=== PATIENT | male | born 1940 | race Caucasian/White ===

== ENCOUNTER → 2017-04-14 | Outpatient (CLI) | payer BC ==
[~2017-04-14] MED LIST: ASPCH81X PO; ATOR-22 PO; DTR5 PO; INDA1TAB3 PO; KFL500 PO; LUTE15CA PO; METO25TA3 PO; OMEG10007 PO; OXYC1CAP5 PO; TAMS0.4C38 PO
[2017-04-14 09:34] LABS: BASO % 0.5 %; BASO ABS # 0.03 K/uL (0-0.2); COMPLETE YES; EOS % 2.4 %; HEMATOCRIT 44.9 % (42-52); IG% 0.3 %; LYMPH % 34.2 %; LYMPH ABS # 2.14 K/uL (1.2-3.4); MEAN CELL VOLUME 93.3 fL (80-100); MEAN CORPUSCULAR HEMOGLOBIN 30.4 pg (25-34); MEAN CORPUSCULAR HGB CONC 32.5 g/dl (32-36); MEAN PLATELET VOLUME 9.7 fL (7.4-10.4); MONO % 9.8 %; NEUT % 52.8 %; PLATELET COUNT 238 K/uL (130-400); RED BLOOD COUNT 4.81 M/uL (4.7-6.1); WHITE BLOOD COUNT 6.25 K/uL (4.8-10.8)
[2017-04-14 09:47] LABS: ESTIMATED AVERAGE GLUCOSE 114 mg/dl; HA1C FLAG Normal (Normal)
[2017-04-14 09:53] LABS: URINE APPEARANCE CLEAR (CLEAR); URINE BILIRUBIN NEG (NEG); URINE COLOR DK YELLOW; URINE NITRITE NEG (NEG); URINE PH 6.5 (4.5-7.5); URINE SPECIFIC GRAVITY 1.026 (1.000-1.030); UROBILINOGEN NEG (NEG)
[2017-04-14 09:54] LABS: ALT/SGPT 25 U/L (12-78); AST/SGOT 15 U/L (15-37); BLOOD UREA NITROGEN 18 mg/dl (7-18); BUN/CREATININE RATIO 17.7 (10-20); CALCIUM 8.7 mg/dl (8.5-10.1); CARBON DIOXIDE 31 mmol/L (21-32); CHLORIDE 107 mmol/L (98-107); GLUCOSE 95 mg/dl (70-99); SODIUM 142 mmol/L (136-145)
[2017-04-14 10:00] LABS: MANUAL MICROSCOPIC REQUIRED? NO; REVIEW REQ? NO
[2017-04-14 10:04] LABS: CHOLESTEROL 114 mg/dl (0-200); CHOLESTEROL/HDL RATIO 1.9; HDL CHOLESTEROL 59 mg/dl; LDL CHOLESTEROL CALCULATED 42 mg/dl; TRIGLYCERIDES 67 mg/dl (0-150); URIC ACID 5.4 mg/dl (2.6-7.2); VERY LOW DENSITY LIPOPROT CALC 13 mg/dl
--- NOTE | 2017-04-21 08:27 | CODING QUERY MEDICAL NECESSITY ---
SUPPORTING DIAGNOSIS NEEDED Dr. Bello, A supporting diagnosis is required for the test/procedure performed on this patient in order for us to be reimbursed by the patient's insurance. Please provide a supporting diagnosis for the following test/procedure listed below next to the test name along with your signature. *If there is no additional diagnosis for this patient that would support the following test/procedure please document that below next to the test/procedure. Test(s)/Procedure(s) that require a supporting diagnosis: * 13336 GLYCATED HEMOGLOBIN DIAGNOSIS: DATE OF SERVICE: 04/14/17 Provider Signature: Date: Thank you Kvng Narvaez [facility] Information Management Once completed, please kindly fax back to [phone] For questions please call [phone]
== END | disposition home or self-care (01) ==
LOC: C.LAB1850 06:47
PROVIDERS: ATTEND Internal Medicine
DX: Z00.00 Encounter for general adult medical examination without abnormal findings (principal); C61 Malignant neoplasm of prostate; E78.00 Pure hypercholesterolemia, unspecified

== ENCOUNTER 2017-07-30 18:05 | Observation (INO) | payer BC ==
[~2017-07-30] VITALS: Ht 182.9 cm; Wt 84.3 kg
[~2017-07-30 18:05] MED LIST changes: +HEPARIN SOD 5000 UNIT/0.5 ML CARP SQ SCH
[2017-07-30] MEDS ORDERED: ONDANSETRON INJ 2 MG/ML 2 ML VIAL IV STA (18:34)
[2017-07-30 18:43] LABS: HEMATOCRIT 44.9 % (42-52); MEAN CELL VOLUME 93.9 fL (80-100); MEAN CORPUSCULAR HEMOGLOBIN 32.4 pg (25-34); MEAN CORPUSCULAR HGB CONC 34.5 g/dl (32-36); MEAN PLATELET VOLUME 9.6 fL (7.4-10.4); PLATELET COUNT 274 K/uL (130-400); RED BLOOD COUNT 4.78 M/uL (4.7-6.1)
[2017-07-30] MEDS ORDERED: CSD50 PO (18:58)
[2017-07-30] MEDS ORDERED: [UNRECOGNIZED DRUG - CODE] TOP (18:58)
[2017-07-30] MEDS ORDERED: DOCU-94 PO (18:58)
[2017-07-30 19:03] LABS: BASO % 0.1 %; BASO ABS # 0.02 K/uL (0-0.2); COMPLETE YES; EOS % 0.4 %; IG% 0.4 %; LYMPH % 12.7 %; LYMPH ABS # 1.86 K/uL (1.2-3.4); MONO % 4.9 %; NEUT % 81.5 %
[2017-07-30 19:04] LABS: ALT/SGPT 23 U/L (12-78); AST/SGOT 15 U/L (15-37); BLOOD UREA NITROGEN 22 mg/dl (7-18); BUN/CREATININE RATIO 21.9 (10-20); CALCIUM 8.9 mg/dl (8.5-10.1); CARBON DIOXIDE 26 mmol/L (21-32); CHLORIDE 104 mmol/L (98-107); CREATININE 0.99 mg/dl (0.60-1.40); GLUCOSE 122 mg/dl (70-99); MAGNESIUM 2.3 mg/dl (1.8-2.4); POTASSIUM 3.7 mmol/L (3.5-5.1); SODIUM 137 mmol/L (136-145)
[2017-07-30 19:12] LABS: ALKALINE PHOSPHATASE 69 U/L (45-117); CKMB/CK RATIO 1.8 (0-3.0)
--- NOTE | 2017-07-30 19:15 | DIAGNOSTIC IMAGING REPORT ---
CHEST ONE VIEW PORTABLE CLINICAL HISTORY: 76 years-old Male presenting with EVALUATE WEAKNESS. TECHNIQUE: Portable upright AP view of the chest was obtained. COMPARISON: 12/04/2015. FINDINGS: Median sternotomy and mediastinal surgical clips noted. Cardiac silhouette normal in size. Minimal opacities at the left lung base. Lungs and pleural spaces otherwise clear. Degenerative changes of the thoracic spine. Upper abdomen normal. IMPRESSION: 1. Minimal left basilar atelectasis otherwise no acute cardiopulmonary disease. Electronically signed by: Jose A Leggett M.D. 07/30/2017 7:14 PM Dictated Date/Time: 07/30/2017 7:11 PM
[2017-07-30 19:31] LABS: LYME DISEASE AB IGG NEG (NEG); LYME DISEASE AB IGM NEG (NEG)
--- NOTE | 2017-07-30 19:49 | DIAGNOSTIC IMAGING REPORT ---
ABD/PELVIS NO IV OR ORAL CONT CLINICAL HISTORY: 76 years-old Male presenting with upper abd pain, vomiting. prior prostatectomy. TECHNIQUE: Multidetector CT of the abdomen and pelvis was performed without the use of intravenous contrast. IV contrast: None. A dose lowering technique was used consistent with the principles of ALARA (as low as reasonably achievable). COMPARISON: 12/26/2012. CT DOSE (mGy.cm): The estimated cumulative dose is 354.53 mGy.cm. FINDINGS: Completions Engineer topogram: Median sternotomy wires noted. Lung bases: Bilateral gynecomastia. Minimal dependent changes likely atelectasis. Peripheral/subpleural solid 4 mm nodule in the right lower lobe (series 3 image 61), not included within the [id number] on prior CT. Peripheral/subpleural solid 4 mm nodule in the left lower lobe (series 3 image 73), unchanged since 2013. Coronary artery calcification. Postsurgical changes of coronary artery bypass. Aortic valve calcification. Top normal heart size. No pericardial or pleural effusion. Liver: Normal morphology. Normal density. Biliary: No gross biliary ductal dilatation allowing for noncontrast technique. Gallbladder contains gallstones. Pancreas: Normal noncontrast appearance. Spleen: Normal noncontrast appearance. Adrenal glands: Normal noncontrast appearance. Kidneys and ureters: Well-defined hypodensity at the lower pole of the left kidney likely cyst. Additional hypodensities in the left kidney also likely cysts. No nephrolithiasis. No hydronephrosis. Bladder: Incompletely evaluated secondary to underdistention. Pelvic organs: Postsurgical changes of prostatectomy. Bowel: Diverticulosis of the sigmoid colon. Mild stool burden throughout normal caliber colon. Few diverticula also noted in the ascending colon with minimal surrounding pericolonic fat stranding in the right paracolic region. This may be somewhat chronic given the appearance on prior exam and the absence of a specific association with diverticula. No bowel obstruction. Feces in the small bowel suggest delayed transit. Peritoneal cavity: No free fluid or intraperitoneal gas. Lymph nodes: No gross lymphadenopathy allowing for noncontrast technique. Vasculature: Atherosclerosis of the normal caliber abdominal aorta. Mild ectasia of the left superficial femoral vein along its proximal course. Abdominal wall: Small fat-containing of umbilical hernia. Musculoskeletal: Degenerative changes of the spine. IMPRESSION: 1. Mild pericolonic fat stranding in the right paracolic region. This is nonspecific. Mild acute diverticulitis is difficult to exclude, although fat infiltration does not appear to be centered at the few diverticula in the ascending colon. This may alternatively represent chronic stranding or fluid in the right anterior peritoneal space, which was present on the prior exam but to a greater degree. 2. Diverticulosis of the sigmoid colon. 3. Mild stool burden. 4. Cholelithiasis. No gross biliary ductal dilatation. 5. Solid 4 mm right lower lobe nodule. Follow-up per Romel Society 2017 recommendations below. Please refer to below summary of Fleischner Society 2017 recommendations for follow-up of incidental CT nodules (H Anusha et al. Guidelines for management of incidental pulmonary nodules detected on CT images: From the Fleischner Society 2017. Radiology 2017; 284: 228-243.) SOLID NODULES Single nodule; size < 6 mm * Low risk patients: No routine follow-up * High risk patients: Optional CT at 12 months Single nodule; size 6-8 mm * Low risk patients: CT at 6-12 months, then consider CT at 18-24 months * High risk patients: CT at 6-12 months, then at 18-24 months Single nodule; size > 8 mm * Either low or high risk patients: Considered CT at 3 months, PET/CT, or tissue sampling Multiple nodules; size < 6 mm * Low risk patients: No routine follow up * High risk patients: Optional CT at 12 months Multiple nodules; size 6-8 mm * Low risk patients: CT at 3-6 months, then consider CT at 18-24 months * High risk patients: CT at 3-6 months, then at 18-24 months Multiple nodules; size > 8 mm * Low risk patients: CT at 3-6 months, then consider at 18-24 months * High risk patients: CT at 3-6 months, then at 18-24 months Note: These guidelines apply to incidental nodules. These guidelines do not apply to patients younger than 35 years, immunocompromised patients, or patients with cancer. * Low risk patients: Minimal or absent history of smoking and/or other known risk factors * High risk patients: History of smoking, exposure to other carcinogens, emphysema, fibrosis, upper lobe location, family history of lung cancer, etc. * If a nodule up to 8 mm is partly solid or is ground glass, further follow-up is required after 24 months to exclude possible slow growing adenocarcinoma. SUBSOLID NODULES Single ground-glass nodule * Nodule size < 6 mm: No routine follow-up * Nodule size > or = 6 mm: CT at 6-12 months to confirm persistence, then CT every 2 years until 5 years Single part-solid nodule * Nodule size < 6 mm: No routine follow-up * Nodules size > or = 6 mm: CT at 3-6 months to confirm persistence. If unchanged and solid component remains < 6 mm, annual CT should be performed for 5 years Multiple nodules * Nodule size < 6 mm: CT at 3-6 months. If stable, consider CT at 2 and 4 years. * Nodules size > or = 6 mm: CT at 3-6 months. Subsequent management based on the most suspicious nodule(s) Electronically signed by: Jose A Leggett M.D. 07/30/2017 7:48 PM Dictated Date/Time: 07/30/2017 7:37 PM
[2017-07-30 20:00] LABS: URINE APPEARANCE CLEAR (CLEAR); URINE BILIRUBIN NEG (NEG); URINE COLOR YELLOW; URINE EPITHELIAL CELL AUTO 0-5 /lpf (0-5); URINE NITRITE NEG (NEG); URINE SPECIFIC GRAVITY 1.024 (1.000-1.030); UROBILINOGEN NEG (NEG)
[2017-07-30 20:01] LABS: MANUAL MICROSCOPIC REQUIRED? NO; REVIEW REQ? NO
[2017-07-30] MEDS ORDERED: PIPERACILLIN/TAZOBACTAM 4.5 GM/100ML D5W IV STA (20:04)
[2017-07-30] MEDS ORDERED: TRAMADOL HCL 50 MG TAB PO PRN (20:45)
[2017-07-30] MEDS ORDERED: ALUMINUM/MAGNESIUM/SIMETH (MAALOX MAX) 30 ML UDC PO PRN (20:45)
[2017-07-30] MEDS ORDERED: ONDANSETRON INJ 2 MG/ML 2 ML VIAL IV PRN (20:45)
[2017-07-30] MEDS ORDERED: ACETAMINOPHEN 325 MG TAB PO PRN (20:45)
[2017-07-30] MEDS ORDERED: POLYETHYLENE (MIRALAX) 17 GM PACK PO PRN (20:45)
[2017-07-30] MEDS ORDERED: MAGNESIUM HYDROXIDE SUSP 30 ML UDC PO PRN (20:45)
[2017-07-30] MEDS ORDERED: ATORVASTATIN 20 MG TAB PO SCH (21:00)
[2017-07-30] MEDS: METOPROLOL SUCC 25MG EXT REL TAB PO SCH (21:00)
[2017-07-30] MEDS ORDERED: OMEGA-3 (PURIFIED FISH OIL) 1 GM CAP PO SCH (21:00)
--- NOTE | 2017-07-30 21:10 | History and Physical ---
History & Physical Date & Time of Service: Jul 30, 2017 at 20:43 Chief Complaint: Vomiting, Flu,Dizzy,Possible Heart Primary Care Physician: Mark Bello M.D. History of Present Illness Source: patient 76 y/o M Hx prostate CA, HTN, HPL, CAD. Pt was driving and became acutely nauseous and lightheaded and clammy. He pulled over and rolled down his window as he felt like he needed some air. He had a few episodes of vomiting and some lower abdominal pain. He continued to feel weak and generally ill and presented to the hospital for evaluation. An abdominal CT was obtained due to persistent pain and vomiting. This was nondefinitive, however, mild acute R diverticulitis could not be ruled out. The pt has not had any CP and does not c /o SOB at the time of admission. He denies fevers or dysuria. Past Medical/Surgical History Medical Problems: (1) Elevated troponin Status: Resolved (2) Non-ST elevated myocardial infarction Status: Resolved (3) Small bowel obstruction Status: Resolved (4) Small bowel obstruction Status: Resolved Surgical Problems: (1) History of hernia surgery Status: Resolved Family History No significant family history Noncontributory Social History Smoking Status: Never Smoker Marital Status: Occupational Status: retired Immunizations History of Influenza Vaccine: Yes History of Tetanus Vaccine?: Yes History of Pneumococcal: No History of Hepatitis B Vaccine: No Multi-Drug Resistant Organisms History of MDRO: No Allergies Coded Allergies: No Known Allergies (Unverified , 12/03/15) Home Medications Scheduled Aspirin (Aspirin Chewable), 81 MG PO QAM Atorvastatin (Lipitor), 20 MG PO QPM Bicalutamide (Bicalutamide), 50 MG PO QPM Docusate Sodium (Colace), 1 CAP PO BID Fish Oil (Drake-3), 1 CAP PO QPM Fluorouracil (Fluorouracil), 1 APPLN TOP UD Indapamide (Lozol), 1.25 MG PO QAM Lutein-Zeaxanthin (Lutein), 1 CAPSULE PO BID Metoprolol Succ (Toprol Xl) (Toprol-Xl), 12.5 MG PO BID Review of Systems Constitutional: + problem reported (Clammy), No fever, No chills, No sweats Eyes: No worsening of vision ENT: No hearing loss, No nasal symptoms Respiratory: + shortness of breath, No cough, No sputum, No wheezing Cardiovascular: No chest pain Abdomen: + pain (diffuse, moderate), + nausea, + vomiting Musculoskeletal: No joint pain Genitourinary - Male: No hematuria, No dysuria, No urinary frequency, No urinary urgency Neurologic: + weakness, No memory loss Psychiatric: No depression symptoms Endocrine: + fatigue Hematologic / Lymphatic: No abnormal bleeding/bruising Integumentary: No rash Allergic / Immunologic: No environmental allergies Physical Exam Vital Signs Date Time Temp Pulse Resp B/P (MAP) Pulse Ox O2 Delivery O2 Flow Rate FiO2 07/30/17 20:01 133/71 07/30/17 19:51 68 18 95 07/30/17 19:36 58 17 140/79 96 07/30/17 19:34 149/80 07/30/17 19:32 63 140/76 71 149/80 75 140/79 07/30/17 19:32 140/76 07/30/17 19:06 64 12 91 07/30/17 19:03 62 07/30/17 19:01 63 13 149/76 93 Room Air 07/30/17 18:53 146/79 07/30/17 18:37 97 Room Air 07/30/17 18:08 36.4 45 19 157/84 97 Room Air General Appearance: WD/WN, no apparent distress Head: normocephalic Eyes: normal inspection ENT: normal ENT inspection, pharynx normal Neck: supple, no JVD Respiratory/Chest: chest non-tender, lungs clear, normal breath sounds Cardiovascular: regular rate, rhythm, no edema, no gallop Abdomen/GI: normal bowel sounds, non tender, soft Back: normal inspection, no CVA tenderness, no muscle spasm, normal range of motion Extremities/Musculoskelatal: normal inspection Neurologic/Psych: drug room operator II-XII nml as tested, no motor/sensory deficits, alert, normal mood/affect, normal reflexes, oriented x 3 Skin: normal color, warm/dry, no rash Diagnostics Laboratory Results Results Past 24 Hours Test 07/30/17 18:20 07/30/17 19:45 Range/Units White Blood Count 14.70 4.8-10.8 K/uL Red Blood Count 4.78 4.7-6.1 M/uL Hemoglobin 15.5 14.0-18.0 g/dL Hematocrit 44.9 42-52 % Mean Corpuscular Volume 93.9 80-100 fL Mean Corpuscular Hemoglobin 32.4 25-34 pg Mean Corpuscular Hemoglobin Concent 34.5 32-36 g/dl Platelet Count 274 130-400 K/uL Mean Platelet Volume 9.6 7.4-10.4 fL Neutrophils (%) (Auto) 81.5 % Lymphocytes (%) (Auto) 12.7 % Monocytes (%) (Auto) 4.9 % Eosinophils (%) (Auto) 0.4 % Basophils (%) (Auto) 0.1 % Neutrophils # (Auto) 11.98 1.4-6.5 K/uL Lymphocytes # (Auto) 1.86 1.2-3.4 K/uL Monocytes # (Auto) 0.72 0.11-0.59 K/uL Eosinophils # (Auto) 0.06 0-0.5 K/uL Basophils # (Auto) 0.02 0-0.2 K/uL RDW Standard Deviation 44.4 36.4-46.3 fL RDW Coefficient of Variation 12.9 11.5-14.5 % Immature Granulocyte % (Auto) 0.4 % Immature Granulocyte # (Auto) 0.06 0.00-0.02 K/uL Red Blood Cell Morphology Unremarkable Sodium Level 137 136-145 mmol/L Potassium Level 3.7 3.5-5.1 mmol/L Chloride Level 104 98-107 mmol/L Carbon Dioxide Level 26 21-32 mmol/L Anion Gap 7.0 3-11 mmol/L Blood Urea Nitrogen 22 7-18 mg/dl Creatinine 0.99 0.60-1.40 mg/dl Est Creatinine Clear Calc Drug Dose 69.7 ml/min Estimated GFR () 85.4 Estimated GFR (Non- 73.7 BUN/Creatinine Ratio 21.9 10-20 Random Glucose 122 70-99 mg/dl Calcium Level 8.9 8.5-10.1 mg/dl Magnesium Level 2.3 1.8-2.4 mg/dl Total Bilirubin 0.4 0.2-1 mg/dl Direct Bilirubin 0.1 0-0.2 mg/dl Aspartate Amino Transf (AST/SGOT) 15 15-37 U/L Alanine Aminotransferase (ALT/SGPT) 23 12-78 U/L Alkaline Phosphatase 69 45-117 U/L Total Creatine Kinase 141 39-308 U/L Creatine Kinase MB 2.6 0.5-3.6 ng/ml Creatine Kinase MB Ratio 1.8 0-3.0 Troponin I < 0.015 0-0.045 ng/ml Pro-B-Type Natriuretic Peptide 559 0-1800 pg/ml Total Protein 7.7 6.4-8.2 gm/dl Albumin 4.1 3.4-5.0 gm/dl Lipase 87 73-393 U/L Thyroid Stimulating Hormone (TSH) 7.890 0.300-4.500 uIu/ml Lyme Disease IgG Antibody NEG NEG Lyme Disease IgM Antibody NEG NEG Urine Color YELLOW Urine Appearance CLEAR CLEAR Urine pH 5.0 4.5-7.5 Urine Specific [place] 1.024 1.000-1.030 Urine Protein NEG NEG Urine Glucose (UA) NEG NEG Urine Ketones 1+ NEG Urine Occult Blood NEG NEG Urine Nitrite NEG NEG Urine Bilirubin NEG NEG Urine Urobilinogen NEG NEG Urine Leukocyte Esterase TRACE NEG Urine WBC (Auto) 0 0-5 /hpf Urine RBC (Auto) 0-4 0-4 /hpf Urine Hyaline Casts (Auto) 1-5 0-5 /lpf Urine Epithelial Cells (Auto) 0-5 0-5 /lpf Urine Bacteria (Auto) NEG NEG Microbiology Results 07/30/17 Urine Culture, Received Pending Diagnostic Radiology CT abdomen 1. Mild pericolonic fat stranding in the right paracolic region. This is nonspecific. Mild acute diverticulitis is difficult to exclude, although fat infiltration does not appear to be centered at the few diverticula in the ascending colon. This may alternatively represent chronic stranding or fluid in the right anterior peritoneal space, which was present on the prior exam but to a greater degree. 2. Diverticulosis of the sigmoid colon. 3. Mild stool burden. 4. Cholelithiasis. No gross biliary ductal dilatation. EKG NSR, RBBB - compared to prev - R vent conduction delay is now a RBBB Impression Assessment and Plan 76 y/o M Hx prostate CA, HTN, HPL, CAD. Pt was driving and became acutely nauseous and lightheaded and clammy. He pulled over and rolled down his window as he felt like he needed some air. He had a few episodes of vomiting and some lower abdominal pain. He continued to feel weak and generally ill and presented to the hospital for evaluation. An abdominal CT was obtained due to persistent pain and vomiting. This was nondefinitive, however, mild acute R diverticulitis could not be ruled out. The pt has not had any CP and does not c /o SOB at the time of admission. He denies fevers or dysuria. 1) Acute N/V abdominal pain - possibly related to acute diverticulitis. He is not tolerating PO so was placed on Zosyn in the ER. We would convert this to PO Augmentin or a Cipro/Flagyl combo at the earliest time considering the equivocal CT report. IVF, clear diet, antiemetics, PRN Tramadol provided. 2) CAD - he had initially felt like he needed air and became clammy - this is probably a GI issue, and an initial EKG and trop do not suggest ACS, however there is a RBBB on his EKG which was previously R conduction delay. this is of unclear significance. We will obtain an additional trop - he will remain on ASA , Statin, B reed. 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 3) HTN, HPL - cont Metoprolol, Lipitor 4) Prostate CA - remains on hormonal Tx 5) TSH is elevated - T3,4 ordered Full code - Heparin prophylaxis Total time for this admit including review of labs, meds, imaging - discussion with pt and ER attending - 40 min Level of Care Med/Surg Resuscitation Status FULL RESUSCITATION VTE Prophylaxis VTE Risk Assessment Done? Y/N: Yes Risk Level: Moderate Given or contraindicated: Unfractionated heparin SQ
--- NOTE | 2017-07-30 21:13 | DIAGNOSTIC IMAGING REPORT ---
GALLBLADDER-ABD LIMITED CLINICAL HISTORY: 76 years-old Male presenting with vomiting, cholelithiasis. TECHNIQUE: Real-time grayscale and limited color Doppler ultrasound imaging of the abdomen limited to the right upper quadrant was performed. COMPARISON: 07/23/2015. FINDINGS: Pancreas: Largely obscured due to overlying bowel gas. Liver: Normal echogenicity and echotexture. The liver measures 14 cm in maximal sagittal dimension. No sonographic evidence of hepatic mass. Main portal vein patent with normal directional flow. Biliary: No intrahepatic biliary ductal dilatation. Common bile duct measures up to 3 mm in diameter. Gallbladder: Gallstones and sludge without evidence of gallbladder distention, wall thickening, or pericholecystic fluid or inflammatory change. 1.6 cm gallstone near the gallbladder neck. Sonographic Velasco's sign negative. Right kidney: Normal in appearance. No hydronephrosis. Ascites: None. IMPRESSION: Cholelithiasis without evidence of cholecystitis or biliary ductal dilatation. Electronically signed by: Jose A Leggett M.D. 07/30/2017 9:12 PM Dictated Date/Time: 07/30/2017 9:10 PM
[2017-07-30] MEDS ORDERED: IV FLUIDS COMPLETED PRN ×2 (21:15)
[2017-07-30 22:16] VITALS: BP 157/76; PULSE 57; TEMP 36.7; O2SAT 93; Ht 182.9 cm; Wt 84.3 kg
[2017-07-30] MEDS: BICALUTAMIDE 50 MG TAB PO SCH (23:22)
[2017-07-31] MEDS: NSS + 20MEQ KCL 1000ML 1,000 ML IV SCH ×2 (00:01→10:24)
[2017-07-31] MEDS: BICALUTAMIDE 50 MG TAB PO SCH (00:03)
--- NOTE | 2017-07-31 03:37 | EMERGENCY ROOM VISIT NOTE ---
History Report prepared by Roslyn: Anita Guadalupe Under the Supervision of: Dr. Will Celis M.D. First contact with patient: 18:21 Chief Complaint: VOMITING Stated Complaint: VOMITING, FLU,DIZZY,POSSIBLE HEART History of Present Illness The patient is a 76 year old male who presents to the Emergency Room with complaints of an episode of vomiting starting two hours ago. The patient states that he was driving his home from physical therapy when he broke out in cold sweats. He states that all of a sudden he became nauseous and opened the car window for some air. He notes that shortly after he started vomiting. He states that it was all clear and there wasn't much there. He states that when he got home he laid down. He reports that he felt like his pulse had dropped, but when he took his pulse it was 57. He states that he took his blood pressure it was 147/82 which is high for him. The patient complains of dizziness, body aches, dry mouth, a little abdominal pain, and numbness in his hands and feet. The patient currently rates his pain as a 3/10 in severity. The patient denies being around anyone sick and eating anything unusual. The patient notes that he has bladder incontinence from a prostatectomy due to prostate cancer. He notes that he is on chemotherapy, but has been for two years. Pt denies LOC, headache, fevers, visual changes, neck pain, chest pain, breathing difficulties, back pain, melena, hematochezia, weakness, lymphadenopathy, rash, or other complaints. Source of History: patient Onset: two hours ago Position: other (global) Symptom Intensity: 3/10 Quality: other (global) Timing: other (episode) Associated Symptoms: + chills, + diaphoresis, + nausea, + abdominal pain, + numbness Note: The patient complains of dizziness, body aches, and a dry mouth. The patient denies being around anyone sick and eating anything unusual. Review of Systems See HPI for pertinent positives and negatives. A total of ten systems were reviewed and were otherwise negative. Past Medical & Surgical Medical Problems: (1) Diverticulitis large intestine (2) Elevated troponin (3) History of prostate cancer (4) Hx of Lyme disease (5) Non-ST elevated myocardial infarction (6) Small bowel obstruction (7) Small bowel obstruction Surgical Problems: (1) H/O prostatectomy (2) History of hernia surgery Family History No significant family history Social History Smoking Status: Never Smoker Marital Status: Housing Status: lives with family Occupation Status: retired Current/Historical Medications Scheduled Aspirin (Aspirin Chewable), 81 MG PO QAM Atorvastatin (Lipitor), 20 MG PO QPM Bicalutamide (Bicalutamide), 50 MG PO QPM Docusate Sodium (Colace), 1 CAP PO BID Fish Oil (Seminary-3), 1 CAP PO QPM Fluorouracil (Fluorouracil), 1 APPLN TOP UD Indapamide (Lozol), 1.25 MG PO QAM Lutein-Zeaxanthin (Lutein), 1 CAPSULE PO BID Metoprolol Succ (Toprol Xl) (Toprol-Xl), 12.5 MG PO BID Allergies Coded Allergies: No Known Allergies (Unverified , 12/03/15) Physical Exam Vital Signs Date Time Temp Pulse Resp B/P (MAP) Pulse Ox O2 Delivery O2 Flow Rate FiO2 07/30/17 20:21 66 13 90 07/30/17 20:06 61 13 95 07/30/17 20:01 133/71 07/30/17 19:51 68 18 95 07/30/17 19:36 58 17 140/79 96 07/30/17 19:34 149/80 07/30/17 19:32 63 140/76 71 149/80 75 140/79 07/30/17 19:32 140/76 07/30/17 19:06 64 12 91 07/30/17 19:03 62 07/30/17 19:01 63 13 149/76 93 Room Air 07/30/17 18:53 146/79 07/30/17 18:37 97 Room Air 07/30/17 18:08 36.4 45 19 157/84 97 Room Air Physical Exam GENERAL: Awake, alert, uncomfortable-appearing, in no distress HENT: Normocephalic, atraumatic. Oropharynx unremarkable. EYES: Normal conjunctiva. Sclera non-icteric. NECK: Supple. No nuchal rigidity. FROM. No JVD. RESPIRATORY: Clear to auscultation. CARDIAC: Borderline bradycardic rate, normal rhythm. Extremities warm and well perfused. Pulses equal. ABDOMEN: Soft, non-distended. Mild upper abdominal tenderness to palpation. No rebound or guarding. No masses. RECTAL: Deferred. MUSCULOSKELETAL: Chest examination reveals no tenderness. The back is symmetrical on inspection without obvious abnormality. There is no CVA tenderness to palpation. No joint edema. LOWER EXTREMITIES: Calves are equal size bilaterally and non-tender. Trace edema. No discoloration. NEURO: Normal sensorium. No sensory or motor deficits noted. SKIN: No rash or jaundice noted. Medical Decision & Procedures ER Provider Diagnostic Interpretation: Radiology results as stated below per my review and radiologist interpretation: CHEST ONE VIEW PORTABLE CLINICAL HISTORY: 76 years-old Male presenting with EVALUATE WEAKNESS. TECHNIQUE: Portable upright AP view of the chest was obtained. COMPARISON: 12/04/2015. FINDINGS: Median sternotomy and mediastinal surgical clips noted. Cardiac silhouette normal in size. Minimal opacities at the left lung base. Lungs and pleural spaces otherwise clear. Degenerative changes of the thoracic spine. Upper abdomen normal. IMPRESSION: 1. Minimal left basilar atelectasis otherwise no acute cardiopulmonary disease. Electronically signed by: Jose A Leggett M.D. 07/30/2017 7:14 PM Dictated Date/Time: 07/30/2017 7:11 PM ABD/PELVIS NO IV OR ORAL CONT CLINICAL HISTORY: 76 years-old Male presenting with upper abd pain, vomiting. prior prostatectomy. TECHNIQUE: Multidetector CT of the abdomen and pelvis was performed without the use of intravenous contrast. IV contrast: None. A dose lowering technique was used consistent with the principles of ALARA (as low as reasonably achievable). COMPARISON: 12/26/2012. CT DOSE (mGy.cm): The estimated cumulative dose is 354.53 mGy.cm. FINDINGS: [place] Hand topogram: Median sternotomy wires noted. Lung bases: Bilateral gynecomastia. Minimal dependent changes likely atelectasis. Peripheral/subpleural solid 4 mm nodule in the right lower lobe (series 3 image 61), not included within the [id number] on prior CT. Peripheral/subpleural solid 4 mm nodule in the left lower lobe (series 3 image 73), unchanged since 2013. Coronary artery calcification. Postsurgical changes of coronary artery bypass. Aortic valve calcification. Top normal heart size. No pericardial or pleural effusion. Liver: Normal morphology. Normal density. Biliary: No gross biliary ductal dilatation allowing for noncontrast technique. Gallbladder contains gallstones. Pancreas: Normal noncontrast appearance. Spleen: Normal noncontrast appearance. Adrenal glands: Normal noncontrast appearance. Kidneys and ureters: Well-defined hypodensity at the lower pole of the left kidney likely cyst. Additional hypodensities in the left kidney also likely cysts. No nephrolithiasis. No hydronephrosis. Bladder: Incompletely evaluated secondary to underdistention. Pelvic organs: Postsurgical changes of prostatectomy. Bowel: Diverticulosis of the sigmoid colon. Mild stool burden throughout normal caliber colon. Few diverticula also noted in the ascending colon with minimal surrounding pericolonic fat stranding in the right paracolic region. This may be somewhat chronic given the appearance on prior exam and the absence of a specific association with diverticula. No bowel obstruction. Feces in the small bowel suggest delayed transit. Peritoneal cavity: No free fluid or intraperitoneal gas. Lymph nodes: No gross lymphadenopathy allowing for noncontrast technique. Vasculature: Atherosclerosis of the normal caliber abdominal aorta. Mild ectasia of the left superficial femoral vein along its proximal course. Abdominal wall: Small fat-containing of umbilical hernia. Musculoskeletal: Degenerative changes of the spine. IMPRESSION: 1. Mild pericolonic fat stranding in the right paracolic region. This is nonspecific. Mild acute diverticulitis is difficult to exclude, although fat infiltration does not appear to be centered at the few diverticula in the ascending colon. This may alternatively represent chronic stranding or fluid in the right anterior peritoneal space, which was present on the prior exam but to a greater degree. 2. Diverticulosis of the sigmoid colon. 3. Mild stool burden. 4. Cholelithiasis. No gross biliary ductal dilatation. 5. Solid 4 mm right lower lobe nodule. Follow-up per Romel Society 2017 recommendations below. Please refer to below summary of Fleischner Society 2017 recommendations for follow-up of incidental CT nodules (H Anusha et al. Guidelines for management of incidental pulmonary nodules detected on CT images: From the Fleischner Society 2017. Radiology 2017; 284: 228-243.) SOLID NODULES Single nodule; size < 6 mm * Low risk patients: No routine follow-up * High risk patients: Optional CT at 12 months Single nodule; size 6-8 mm * Low risk patients: CT at 6-12 months, then consider CT at 18-24 months * High risk patients: CT at 6-12 months, then at 18-24 months Single nodule; size > 8 mm * Either low or high risk patients: Considered CT at 3 months, PET/CT, or tissue sampling Multiple nodules; size < 6 mm * Low risk patients: No routine follow up * High risk patients: Optional CT at 12 months Multiple nodules; size 6-8 mm * Low risk patients: CT at 3-6 months, then consider CT at 18-24 months * High risk patients: CT at 3-6 months, then at 18-24 months Multiple nodules; size > 8 mm * Low risk patients: CT at 3-6 months, then consider at 18-24 months * High risk patients: CT at 3-6 months, then at 18-24 months Note: These guidelines apply to incidental nodules. These guidelines do not apply to patients younger than 35 years, immunocompromised patients, or patients with cancer. * Low risk patients: Minimal or absent history of smoking and/or other known risk factors * High risk patients: History of smoking, exposure to other carcinogens, emphysema, fibrosis, upper lobe location, family history of lung cancer, etc. * If a nodule up to 8 mm is partly solid or is ground glass, further follow-up is required after 24 months to exclude possible slow growing adenocarcinoma. SUBSOLID NODULES Single ground-glass nodule * Nodule size < 6 mm: No routine follow-up * Nodule size > or = 6 mm: CT at 6-12 months to confirm persistence, then CT every 2 years until 5 years Single part-solid nodule * Nodule size < 6 mm: No routine follow-up * Nodules size > or = 6 mm: CT at 3-6 months to confirm persistence. If unchanged and solid component remains < 6 mm, annual CT should be performed for 5 years Multiple nodules * Nodule size < 6 mm: CT at 3-6 months. If stable, consider CT at 2 and 4 years. * Nodules size > or = 6 mm: CT at 3-6 months. Subsequent management based on the most suspicious nodule(s) Electronically signed by: Jose A Leggett M.D. 07/30/2017 7:48 PM Dictated Date/Time: 07/30/2017 7:37 PM GALLBLADDER-ABD LIMITED CLINICAL HISTORY: 76 years-old Male presenting with vomiting, cholelithiasis. TECHNIQUE: Real-time grayscale and limited color Doppler ultrasound imaging of the abdomen limited to the right upper quadrant was performed. COMPARISON: 07/23/2015. FINDINGS: Pancreas: Largely obscured due to overlying bowel gas. Liver: Normal echogenicity and echotexture. The liver measures 14 cm in maximal sagittal dimension. No sonographic evidence of hepatic mass. Main portal vein patent with normal directional flow. Biliary: No intrahepatic biliary ductal dilatation. Common bile duct measures up to 3 mm in diameter. Gallbladder: Gallstones and sludge without evidence of gallbladder distention, wall thickening, or pericholecystic fluid or inflammatory change. 1.6 cm gallstone near the gallbladder neck. Sonographic Velasco's sign negative. Right kidney: Normal in appearance. No hydronephrosis. Ascites: None. IMPRESSION: Cholelithiasis without evidence of cholecystitis or biliary ductal dilatation. Electronically signed by: Jose A Leggett M.D. 07/30/2017 9:12 PM Dictated Date/Time: 07/30/2017 9:10 PM Laboratory Results 07/30/17 18:20 Red Blood Count 4.78, Mean Corpuscular Volume 93.9, Mean Corpuscular Hemoglobin 32.4, Mean Corpuscular Hemoglobin Concent 34.5, Mean Platelet Volume 9.6, Neutrophils (%) (Auto) 81.5, Lymphocytes (%) (Auto) 12.7, Monocytes (%) (Auto) 4.9, Eosinophils (%) (Auto) 0.4, Basophils (%) (Auto) 0.1, Neutrophils # (Auto) 11.98, Lymphocytes # (Auto) 1.86, Monocytes # (Auto) 0.72, Eosinophils # (Auto) 0.06, Basophils # (Auto) 0.02 07/30/17 18:20 Test 07/30/17 18:20 07/30/17 19:45 White Blood Count 14.70 K/uL (4.8-10.8) Red Blood Count 4.78 M/uL (4.7-6.1) Hemoglobin 15.5 g/dL (14.0-18.0) Hematocrit 44.9 % (42-52) Mean Corpuscular Volume 93.9 fL (80-100) Mean Corpuscular Hemoglobin 32.4 pg (25-34) Mean Corpuscular Hemoglobin Concent 34.5 g/dl (32-36) Platelet Count 274 K/uL (130-400) Mean Platelet Volume 9.6 fL (7.4-10.4) Neutrophils (%) (Auto) 81.5 % Lymphocytes (%) (Auto) 12.7 % Monocytes (%) (Auto) 4.9 % Eosinophils (%) (Auto) 0.4 % Basophils (%) (Auto) 0.1 % Neutrophils # (Auto) 11.98 K/uL (1.4-6.5) Lymphocytes # (Auto) 1.86 K/uL (1.2-3.4) Monocytes # (Auto) 0.72 K/uL (0.11-0.59) Eosinophils # (Auto) 0.06 K/uL (0-0.5) Basophils # (Auto) 0.02 K/uL (0-0.2) RDW Standard Deviation 44.4 fL (36.4-46.3) RDW Coefficient of Variation 12.9 % (11.5-14.5) Immature Granulocyte % (Auto) 0.4 % Immature Granulocyte # (Auto) 0.06 K/uL (0.00-0.02) Red Blood Cell Morphology Unremarkable Anion Gap 7.0 mmol/L (3-11) Est Creatinine Clear Calc Drug Dose 69.7 ml/min Estimated GFR () 85.4 Estimated GFR (Non- 73.7 BUN/Creatinine Ratio 21.9 (10-20) Calcium Level 8.9 mg/dl (8.5-10.1) Magnesium Level 2.3 mg/dl (1.8-2.4) Total Bilirubin 0.4 mg/dl (0.2-1) Direct Bilirubin 0.1 mg/dl (0-0.2) Aspartate Amino Transf (AST/SGOT) 15 U/L (15-37) Alanine Aminotransferase (ALT/SGPT) 23 U/L (12-78) Alkaline Phosphatase 69 U/L (45-117) Total Creatine Kinase 141 U/L (39-308) Creatine Kinase MB 2.6 ng/ml (0.5-3.6) Creatine Kinase MB Ratio 1.8 (0-3.0) Pro-B-Type Natriuretic Peptide 559 pg/ml (0-1800) Total Protein 7.7 gm/dl (6.4-8.2) Albumin 4.1 gm/dl (3.4-5.0) Lipase 87 U/L (73-393) Thyroid Stimulating Hormone (TSH) 7.890 uIu/ml (0.300-4.500) Lyme Disease IgG Antibody NEG (NEG) Lyme Disease IgM Antibody NEG (NEG) Urine Color YELLOW Urine Appearance CLEAR (CLEAR) Urine pH 5.0 (4.5-7.5) Urine Specific [place] 1.024 (1.000-1.030) Urine Protein NEG (NEG) Urine Glucose (UA) NEG (NEG) Urine Ketones 1+ (NEG) Urine Occult Blood NEG (NEG) Urine Nitrite NEG (NEG) Urine Bilirubin NEG (NEG) Urine Urobilinogen NEG (NEG) Urine Leukocyte Esterase TRACE (NEG) Urine WBC (Auto) 0 /hpf (0-5) Urine RBC (Auto) 0-4 /hpf (0-4) Urine Hyaline Casts (Auto) 1-5 /lpf (0-5) Urine Epithelial Cells (Auto) 0-5 /lpf (0-5) Urine Bacteria (Auto) NEG (NEG) Laboratory results reviewed by me Medications Administered Medications (Trade) Dose Ordered Sig/Erica Route Start Time Stop Time Status Last Admin Dose Admin Ondansetron HCl (Zofran Inj) 4 mg NOW STAT IV 07/30/17 18:34 07/30/17 18:36 DC 07/30/17 18:44 4 MG Piperacillin Sod/ Tazobactam Sod (Zosyn Iv) 4.5 gm NOW STAT IV 07/30/17 20:04 07/30/17 20:06 DC 07/30/17 20:17 4.5 GM ECG Indication: vomiting Rate (beats per minute): 69 Rhythm: normal sinus Findings: RBBB, no acute ischemic change, left axis deviation ED Course 1823: The patient was evaluated in room B11B. A complete history and physical exam was performed. 1833: Ordered Zofran Inj 4 mg IV. 2003: Ordered Zosyn Iv 4.5 gm IV. 2005: I reevaluated the patient and he is resting comfortably. I updated the patient on his test results and the treatment plan. The patient agreed with the plan. 2011: Discussed the patient's case with Dr. Meyers. The patient will be evaluated for further treatment and disposition. Medical Decision Triage Nursing notes reviewed. The patient's presentation and history were concerning for vomiting, diaphoresis , and abdominal pain. Etiologies such as obstruction, pancreatitis, gastroenteritis, cardiac sources, food borne illness, infections, appendicitis, diverticulitis, inflammatory bowel disease, GI bleed, biliary pathology, toxicologic as well as others were entertained. The patient was evaluated. He had some abdominal discomfort. He underwent the above workup. ECG was unremarkable. Lyme negative. LFTs unremarkable. He had a mild leukocytosis. CT imaging was concerning for possible mild diverticulitis. He had a gallstone noted. He was hydrated. He was given Zofran. He was having continued nausea. He was given IV Zosyn. A bladder ultrasound did not reveal any evidence of cholecystitis. I discussed treatment options with the patient and he is comfortable with inpatient management. I discussed the case with the hospitalist. The patient was evaluated in the Emergency Room for further management. Medication Reconcilliation Current Medication List: was personally reviewed by me Blood Pressure Screening Patient's blood pressure: Elevated blood pressure Blood pressure disposition: Elevated BP felt to be situational Will be further monitored by hospitalist. Consults Time Called: 2007 Consulting Physician: Dr. Meyers Returned Call: 2011 Discussed the patient's case with Dr. Meyers. The patient will be evaluated for further treatment and disposition. Impression Primary Impression: Diverticulitis Additional Impressions: Vomiting Cholelithiasis Scribe Attestation The scribe's documentation has been prepared under my direction and personally reviewed by me in its entirety. I confirm that the note above accurately reflects all work, treatment, procedures, and medical decision making performed by me. Departure Information Dispostion Being Evaluated By Hospitalist Referrals Mark Bello M.D. (PCP) Patient Instructions My [facility] Problem Qualifiers
[2017-07-31] MEDS ORDERED: PIPERACILL/TAZOBAC IV 3.375 GM in DEXTROSE 5% 100ML 100 ML IV ONE (04:00)
[2017-07-31 06:16] LABS: INR 1.1 (0.9-1.1); PROTHROMBIN TIME (PATIENT) 11.4 SECONDS (9.0-12.0)
[2017-07-31 07:24] LABS: MEAN CELL VOLUME 93.1 fL (80-100); MEAN CORPUSCULAR HEMOGLOBIN 31.4 pg (25-34); MEAN CORPUSCULAR HGB CONC 33.7 g/dl (32-36); MEAN PLATELET VOLUME 9.5 fL (7.4-10.4); PLATELET COUNT 229 K/uL (130-400); RED BLOOD COUNT 4.08 M/uL (4.7-6.1); WHITE BLOOD COUNT 7.01 K/uL (4.8-10.8)
[2017-07-31 07:26] LABS: BUN/CREATININE RATIO 19.2 (10-20); CALCIUM 8.3 mg/dl (8.5-10.1); CREATININE 0.92 mg/dl (0.60-1.40); POTASSIUM 3.6 mmol/L (3.5-5.1)
[2017-07-31 07:59] VITALS: BP 147/74; PULSE 49; TEMP 36.9; O2SAT 94
[2017-07-31] MEDS ORDERED: ASPIRIN 81 MG CHEW PO SCH (08:00)
[2017-07-31] MEDS ORDERED: INDAPAMIDE 1.25 MG TAB PO SCH (08:00)
--- NOTE | 2017-07-31 08:15 | Family Medicine Progress Note ---
Progress Note Date of Service Jul 31, 2017.
[2017-07-31] MEDS: METOPROLOL SUCC 25MG EXT REL TAB PO SCH (08:57)
[2017-07-31 09:57] VITALS: BP 143/82; PULSE 57; TEMP 36.7; O2SAT 97
[2017-07-31 09:58] VITALS: BP 146/81; PULSE 46
[2017-07-31 09:59] VITALS: BP 136/72; PULSE 55
[2017-07-31] MEDS ORDERED: HEPARIN SOD 5000 UNIT/0.5 ML CARP SQ SCH (10:00)
[2017-07-31] MEDS ORDERED: AMOXICILLIN/CLAVULANATE TAB 875 MG TAB PO SCH (10:00)
[2017-07-31] MEDS ORDERED: AMOX1TAB43 PO (15:11)
[2017-07-31 15:18] VITALS: BP 136/72; PULSE 55; TEMP 36.7; O2SAT 97
--- NOTE | 2017-07-31 15:22 | Discharge Instructions ---
Discharge Instructions Date of Service Jul 31, 2017. Admission Reason for Admission: Diverticulitis Large Intestine Discharge Discharge Diagnosis / Problem: diverticulitis Discharge Goals Goal(s): Improve disease control Activity Recommendations Activity Limitations: resume your previous activity . Instructions / Follow-Up Instructions / Follow-Up Mr. Murray, Grant came into the hospital with vomiting, abdominal pain and weakness. You were found to have a high white blood count and which means that your body is attempting to fight an infection.You were found to have on CT of the abdomen inflammation of the large bowel. This could be from an infection called diverticulitis. We started you on antibiotics and your white count improved over night. We advise the following in the outpatient; 1. Continue to take Augmentin 3 times a day for 9 more days. 2. Follow up with Dr. Bello regarding this hospital visit 3. You were found to have a elevated TSH with normal thyroid levels. This is also most likely due to infection. But please follow up with Dr. Bello. 4. You were also found to have a 4mm nodule in your lung on chest CT. These nodes are common findings, but need to be followed up closely in the outpatient setting. It was a pleasure to take care of you. Please follow up with the ED if you experience severe symptoms; fever, severe pain, n/v. Thank you, Dr. Garcia Current Hospital Diet Patient's current hospital diet: AHA Diet (Heart Healthy) Discharge Diet Recommended Diet: AHA Diet (Heart Healthy) Pending Studies Studies pending at discharge: no Medical Emergencies . Who to Call and When: Medical Emergencies: If at any time you feel your situation is an emergency, please call 911 immediately. . Non-Emergent Contact Non-Emergency issues call your: Primary Care Provider . . "Provider Documentation" section prepared by Mele Garcia. . VTE Core Measure Inpt VTE Proph given/why not?: Unfractionated heparin SQ
[2017-07-31 15:27] VITALS: BP_SYST 112; BP_SYST 123; BP_DIAS 62; BP_DIAS 71; PULSE 50; PULSE 71; TEMP 36.6; O2SAT 100; O2SAT 95
--- NOTE | 2017-07-31 17:19 | Discharge Summary ---
Discharge Summary Date of Service Jul 31, 2017. (Mele Garcia M.D.) Discharge Summary Admission Date: Jul 30, 2017 at 20:37 Discharge Date: Jul 31, 2017 Discharge Disposition: Home Principal Diagnosis: diverticulitis Immunizations: Have You Had Influenza Vaccine: Yes History of Tetanus Vaccine?: Yes History of Pneumococcal: No History of Hepatitis B Vaccine: No (Mele Garcia M.D.) Medication Reconciliation New Medications: Amoxicillin & Pot Clavulanate (Amoxicillin/Clavulanate P) 1 Tab Tab 875 MG PO TID for 9 Days, #27 TAB Continued Medications: Aspirin (Aspirin Chewable) 81 Mg Chew 81 MG PO QAM Atorvastatin (Lipitor) 20 Mg Tab 20 MG PO QPM, TAB Bicalutamide (Bicalutamide) 50 Mg Tab 50 MG PO QPM Docusate Sodium (Colace) 100 Mg Cap 1 CAP PO BID for 30 Days, #60 CAP Fish Oil ([place]-3) 1 Ea Cap 1 CAP PO QPM, CAP Fluorouracil (Fluorouracil) 120 Appln/40 Gm Cr 1 APPLN TOP UD Indapamide (Lozol) 1.25 Mg Tab 1.25 MG PO QAM, TAB Lutein-Zeaxanthin (Lutein) 1 Cap Cap 1 CAPSULE PO BID Metoprolol Succ (Toprol Xl) (Toprol-Xl) 25 Mg Tabcr 12.5 MG PO BID Discharge Exam Review of Systems: Constitutional: No fever, No chills, No sweats Respiratory: No cough, No sputum, No wheezing, No shortness of breath Cardiovascular: No chest pain, No orthopnea, No PND, No edema Abdomen: + pain, No nausea, No vomiting, No diarrhea Physical Exam: General Appearance: WD/WN, no apparent distress Neck: supple, no adenopathy, thyroid normal Respiratory/Chest: chest non-tender, lungs clear, normal breath sounds, no respiratory distress, no accessory muscle use Cardiovascular: regular rate, rhythm, no edema, no gallop, no JVD, no murmur Abdomen / GI: normal bowel sounds, non tender, soft, no organomegaly Neurologic/Psychiatric: alert, normal mood/affect, normal reflexes Skin: normal color, warm/dry, no rash (Mele Garcia M.D.) Hospital Course 76 yo male comes into the hospital after experiencing lightheadedness, nausea and vomiting. Pt was admitted; afebrile, with a WBC of [address] that showed right -sided large bowel inflammation. The patient was treated with IV abx in the ED and transitioned to PO Augmentin on admission to a [facility] floor. By morning, patients symptoms had improved and his white count had dropped to 7. Pt was discharged and treated for suspected diverticulitis with PO Augmentin 875 TID. Of note, pt said that he has been feeling fatigued for quite some time; relating it to increased stress at home. 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 In addition to diverticulitis/gastroenteritis, please follow up with these findings; 1. 4 mm lung nodule incidentally found on CT 2. Increased TSH, normal T3 and T4. Likely related to infection. Total Time Spent: Less than 30 minutes This includes examination of the patient, discharge planning, medication reconciliation, and communication with other providers. (Mele Garcia M.D.) Discharge Instructions Please refer to the electronic Patient Visit Report (Discharge Instructions) for additional information. (Mele Garcia M.D.) Additional Copies To Mark Bello M.D. Assessment/Plan Resident Physician Supervision Note: I was present with Dr. Garcia during the history and exam. I discussed the case with the resident and agree with the findings and plan as documented in the note. Any exceptions or clarifications are listed here. 76 y/o male h/o prostate cancer presents with sudden onset fatigue and nausea/ vomiting. Pt reports improvement with administration of abx and without recurrence w/ transition to PO. Most recent colonoscopy was 1.5 years ago and was WNL. As patient is tolerating diet and has rectified admitting problem, will discharge on medical management for suspected diverticulitis as described above. Would recommend follow up of elevated TSH (likely from acute illness stress w/ nl T3/T4) and prompt evaluation of prostate Ca as right sided diverticular sx are uncommon and may belie underlying disease. (Mert Ny MD)
== END 2017-07-31 16:00 | disposition home or self-care (01) ==
LOC: C.EDB 18:06 → C.MS4W 20:37 → ENRESERV 21:07
PROVIDERS: ADMIT Internal Medicine; ATTEND Family Medicine
DX: K57.32 Diverticulitis of large intestine without perforation or abscess without bleeding (principal); K80.20 Calculus of gallbladder without cholecystitis without obstruction; I25.10 Atherosclerotic heart disease of native coronary artery without angina pectoris; I25.2 Old myocardial infarction; I10 Essential (primary) hypertension; E78.5 Hyperlipidemia, unspecified; Z85.46 Personal history of malignant neoplasm of prostate; Z87.19 Personal history of other diseases of the digestive system; Z79.82 Long term (current) use of aspirin; Z79.899 Other long term (current) drug therapy

== ENCOUNTER → 2017-08-17 | Outpatient (CLI) | payer BC ==
[~2017-08-17] MED LIST changes: +AMOX1TAB43 PO; +CSD50 PO; +DOCU-94 PO; -DTR5 PO; -HEPARIN SOD 5000 UNIT/0.5 ML CARP SQ SCH; -KFL500 PO; -OXYC1CAP5 PO; -TAMS0.4C38 PO; +[UNRECOGNIZED DRUG - CODE] TOP
[2017-08-17 15:34] LABS: BASO % 0.4 %; BASO ABS # 0.03 K/uL (0-0.2); COMPLETE YES; EOS % 0.9 %; HEMATOCRIT 41.9 % (42-52); IG% 0.1 %; LYMPH % 28.6 %; LYMPH ABS # 2.01 K/uL (1.2-3.4); MEAN CELL VOLUME 94.6 fL (80-100); MEAN CORPUSCULAR HEMOGLOBIN 31.6 pg (25-34); MEAN CORPUSCULAR HGB CONC 33.4 g/dl (32-36); MONO % 7.3 %; NEUT % 62.7 %; PLATELET COUNT 233 K/uL (130-400); RED BLOOD COUNT 4.43 M/uL (4.7-6.1); WHITE BLOOD COUNT 7.03 K/uL (4.8-10.8)
[2017-08-17 15:47] LABS: BLOOD UREA NITROGEN 24 mg/dl (7-18); CREATININE 1.07 mg/dl (0.60-1.40); GLUCOSE 124 mg/dl (70-99)
[2017-08-17 15:48] LABS: BUN/CREATININE RATIO 22.3 (10-20); CALCIUM 8.6 mg/dl (8.5-10.1); CARBON DIOXIDE 28 mmol/L (21-32); CHLORIDE 102 mmol/L (98-107); POTASSIUM 3.4 mmol/L (3.5-5.1); SODIUM 136 mmol/L (136-145)
== END | disposition home or self-care (01) ==
LOC: C.LAB1850 13:53
PROVIDERS: ATTEND Internal Medicine
DX: I10 Essential (primary) hypertension (principal); I25.10 Atherosclerotic heart disease of native coronary artery without angina pectoris

== ENCOUNTER → 2017-10-22 | Outpatient (CLI) | payer BC ==
[2017-10-22 09:34] LABS: BASO % 0.5 %; BASO ABS # 0.03 K/uL (0-0.2); EOS % 3.1 %; EOS ABS # 0.17 K/uL (0-0.5); HEMATOCRIT 43.9 % (42-52); HEMOGLOBIN 14.9 g/dL (14.0-18.0); IG# 0.02 K/uL (0.00-0.02); LYMPH % 32.3 %; MEAN CELL VOLUME 94.8 fL (80-100); MEAN CORPUSCULAR HEMOGLOBIN 32.2 pg (25-34); MEAN CORPUSCULAR HGB CONC 33.9 g/dl (32-36); MEAN PLATELET VOLUME 10.3 fL (7.4-10.4); MONO % 9.2 %; MONO ABS # 0.51 K/uL (0.11-0.59); NEUT % 54.5 %; NEUT ABS # 3.04 K/uL (1.4-6.5); PLATELET COUNT 220 K/uL (130-400); RED CELL DISTRIBUTION WIDTH CV 13.2 % (11.5-14.5); RED CELL DISTRIBUTION WIDTH SD 45.7 fL (36.4-46.3); WHITE BLOOD COUNT 5.57 K/uL (4.8-10.8)
[2017-10-22 10:01] LABS: ALT/SGPT 22 U/L (12-78); AST/SGOT 14 U/L (15-37); BLOOD UREA NITROGEN 18 mg/dl (7-18); CALCIUM 8.8 mg/dl (8.5-10.1); CARBON DIOXIDE 28 mmol/L (21-32); GLUCOSE 98 mg/dl (70-99); POTASSIUM 3.7 mmol/L (3.5-5.1); SODIUM 136 mmol/L (136-145)
[2017-10-22 10:14] LABS: CHOLESTEROL 116 mg/dl (0-200); LDL CHOLESTEROL CALCULATED 50 mg/dl; URIC ACID 4.9 mg/dl (2.6-7.2)
[2017-10-22 10:43] LABS: HEMOGLOBIN A1C 5.3 % (4.5-5.6)
== END | disposition home or self-care (01) ==
LOC: C.LAB1850 07:04
PROVIDERS: ATTEND Internal Medicine
DX: E78.00 Pure hypercholesterolemia, unspecified (principal)

== ENCOUNTER → 2017-12-30 | Outpatient (CLI) | payer BC ==
[2017-12-30 15:34] LABS: HEMATOCRIT 42.1 % (42-52); HEMOGLOBIN 14.4 g/dL (14.0-18.0)
== END | disposition home or self-care (01) ==
LOC: C.LAB1850 13:54
PROVIDERS: ATTEND Physician Assistant Medical
DX: R53.83 Other fatigue (principal)

== ENCOUNTER → 2018-04-08 | Outpatient (CLI) | payer BC ==
[2018-04-08 17:28] LABS: HEMATOCRIT 43.8 % (42-52); HEMOGLOBIN 15.3 g/dL (14.0-18.0); MEAN CELL VOLUME 92.8 fL (80-100); MEAN CORPUSCULAR HEMOGLOBIN 32.4 pg (25-34); MEAN CORPUSCULAR HGB CONC 34.9 g/dl (32-36); MEAN PLATELET VOLUME 10.1 fL (7.4-10.4); PLATELET COUNT 237 K/uL (130-400); RED CELL DISTRIBUTION WIDTH SD 44.1 fL (36.4-46.3); WHITE BLOOD COUNT 8.15 K/uL (4.8-10.8)
== END | disposition home or self-care (01) ==
LOC: C.LAB1850 16:34
PROVIDERS: ATTEND Internal Medicine
DX: E78.00 Pure hypercholesterolemia, unspecified (principal); Z95.1 Presence of aortocoronary bypass graft; R53.83 Other fatigue

== ENCOUNTER 2024-08-28 12:52 | Observation (INO) ==
--- NOTE | 2024-08-28 13:59 | XRay Report ---
XR chest 1V portable HISTORY: 83 years-old Male weakness acute weakness COMPARISON: 08/25/2024 TECHNIQUE: AP view of the chest FINDINGS: Cardiac silhouette is enlarged. Median sternotomy. Mild chronic interstitial coarsening with bibasila r atelectasis versus scarring. Mild right hemidiaphragmatic elevation. No pneumothorax or large pleur al effusion. Bones appear grossly intact. IMPRESSION: No acute process. ACT 112: Negative or not required by law. The above report was generated using voice recognition software. It may contain grammatical, syntax o r spelling errors. Electronically signed by: Jaylen Martin M.D. 08/28/2024 1:56 PM
[2024-08-28] MEDS: CIPROFLOXACIN HCL 0.3% OP SOLN 2.5 ML BTL OTB ONE (14:28)
[2024-08-28] MEDS: ALBUT/IPRATROP 3MG/0.5MG NEB 3 ML VIAL NEB STA (14:28)
[2024-08-28] MEDS: methylPREDNISolone 125 MG/2 ML VIAL IV STA (14:28)
[2024-08-28 14:34] LABS: Basophils # (auto) 0.02 K/uL (0.00-0.20); Basophils % (auto) 0.2 %; Hematocrit (blood only) 38.3 % (42.0-52.0); Hemoglobin 12.6 g/dl (14.0-18.0); Immature Granulocytes # (auto) 0.03 K/uL (0.01-0.20); Immature Granulocytes % (auto) 0.4 %; Lymphocytes # (auto) 0.92 K/uL (1.20-3.40); Lymphocytes % (auto) 11.3 %; Mean Corpuscular Hemoglobin 31.2 pg (25.0-34.0); Mean Corpuscular Hgb Conc 32.9 g/dL (32.0-36.0); Mean Corpuscular Volume 94.8 fL (80.0-100.0); Mean Platelet Volume 9.4 fL (9.4-12.4); Monocytes # (auto) 0.85 K/uL (0.11-0.59); Monocytes % (auto) 10.5 %; Neutrophils # (auto) 6.29 K/uL (1.40-6.50); Neutrophils % (auto) 77.6 %; Platelet Count 282 K/uL (130-400); RDW Standard Deviation 45.6 fL (36.4-46.3); Red Blood Count 4.04 M/uL (4.70-6.10); White Blood Count 8.11 K/ul (4.8-10.8)
[2024-08-28 14:46] LABS: Albumin Globulin Ratio 1.3 (0.9-2); Albumin Level 4.2 gm/dl (3.4-5.0); BUN Creatinine Ratio 20.2 (10-20); Bilirubin,Total 0.7 mg/dl (0.2-1.0); Calcium 9.4 mg/dl (8.6-10.3); Creatinine Clr Calc Pharmacy 60.2 ml/min; Globulin 3.2 gm/dl (2.5-4.0); Magnesium 2.3 mg/dl (1.7-2.4); Potassium 4.4 mmol/L (3.5-5.1); Total Protein 7.4 gm/dl (6.0-8.3)
[2024-08-28 14:52] LABS: Troponin I High Sensitivity 13.9 pg/ml (0-20)
--- NOTE | 2024-08-28 15:33 | History & Physical Report ---
Date of Service August 28, 2024 Assessment & Plan (1) Acute bronchitis due to Rhinovirus: Plan: seen in the ED 08/25 for which he tested positive for rhino/enterovirus Patient with worsening cough, yellow sputum production, dyspnea, dizziness Nonhypoxic on room air CXR negative Is not wheezing Did have relief with IV steroids and DuoNeb treatment - Sputum cultures ordered - Chest CT without contrast ordered - Will continue with benzonatate - will start Augmentin given cough present x 17 days - will add MRSA swab (can add doxy if positive) - incentive spirometry - IV fluid gentle resuscitation began in ED, will finish first bag and then discontinue as patient can tolerate p.o. intake and critical IV fluid shortage - defer further steroid use as not wheezing and no underlying lung dz (2) Acute conjunctivitis: Plan: Patient with worsening conjunctivitis and yellow/weak discharge from bilateral eyes On ciprofloxacin drops x 2 years for macular degeneration - Will start erythromycin ointment Q6H x 7 days - warm compresses prn - Eye cultures pending from ED (3) CAD (coronary artery disease): Plan: History of CAD s/p three-vessel CABG in 2014 Continue ASA and statin (4) Hypertension: Plan: Mildly elevated, overall nonconcerning given acute infection and IV fluid resuscitation - missed a.m. home medications; will order on admission - Continue home olmesartan Plan Chronic stable diagnoses: Macular degeneration continue ciprofloxacin and bimatoprost drops prostate CA prostatectomy in 2016, Lupron injections every 3 months pulmonary nodules - stable being followed by PCP GISELLE - does not use CPAP VTE ppx: SCDs as likely to discharge home within 24 to 48 hours, can add on pharmacologic therapy if long-term stay Diet: regular Code status: DNR/DNI Dispo: MSO Admission and Anticipated Discharge Date Admission Date: 08/28/24 History of Present Illness Chief Complaint: eye pain Primary Care Provider: Sharee Mario MD Patient is an 83-year-old male who was recently seen in the ER for bronchitis and conjunctivitis, tested positive for rhinovirus/enterovirus. He has a past medical history of CAD s/p three-vessel CABG 2014, hypertension, history of prostate cancer, GISELLE, pulmonary nodules, and macular degeneration (cipro drops daily x2 years) . He presents today due to worsening cough, hot flashes, sputum production, eye drainage, burning of eyes, sore throat, dyspnea. he stated that for the past 17 days he has had the symptoms, it got worse this morning. When he was discharged from the ER on 08/25, he was not sent on any medications, only told to do warm compress for both eyes. He has had yellow/green sputum production along with yellow/white discharge from his eyes. He has no rashes, had Shingrix vaccine. He also stated that he has had tingling of his arms with severe coughing episodes. He has also had dizziness today with coughing episodes. He stated last night he had an episode of heavy chest pain that lasted 3 to 4 minutes with a coughing fit. He endorses dizziness, headaches, sore throat, rhinorrhea. Patient denies abdominal pain, nausea, vomiting, diarrhea, constipation. He is a and lives at home alone. He does not use a CPAP for his sleep apnea, he just sleeps on his side and stomach. He did not take his home medications this morning. He wishes to be DNR/DNI. Allergies Allergy/AdvReac Type Severity Reaction Status Date / Time metoprolol AdvReac Bradycardia Verified 07/12/24 14:02 Home Medications Medication Instructions Recorded Confirmed Type aspirin 81 mg tablet 81 mg PO DAILY 04/22/19 08/28/24 History lutein 20 mg capsule 20 mg PO BID 04/22/19 08/28/24 History omega-3 acid ethyl esters 1 gram 1 cap PO DAILY 04/22/19 08/28/24 History capsule cholecalciferol (vitamin D3) 125 125 mcg PO DAILY 03/09/23 08/28/24 History mcg (5,000 unit) capsule bimatoprost 0.01 % eye drops 1 drp ophthalmic (eye) DAILY 12/15/23 08/28/24 History ([place]) triamcinolone acetonide 0.1 % 1 applic topical BID 2 weeks #80 02/04/24 08/28/24 Rx topical ointment grams atorvastatin 20 mg tablet 20 mg PO DAILY #90 tabs 06/23/24 08/28/24 Rx olmesartan 20 mg tablet 20 mg PO DAILY #90 tabs 06/23/24 08/28/24 Rx calcium carbonate 1 tab PO DAILY 08/28/24 08/28/24 History leuprolide (3 month) 11.25 mg (3 0 unit IM DIRECTED 08/28/24 08/28/24 History month) intramuscular syringe kit (Lupron Depot) Past Med/Surg History Problem List (Updated 08/28/24 @ 16:20 by Jess Sandy PA-C) Acute conjunctivitis Acute right eye pain Acute viral conjunctivitis of both eyes (Acute) Acute bronchitis due to Rhinovirus (Acute) GISELLE (obstructive sleep apnea) Urinary urgency Hypersomnia Multiple pulmonary nodules Anemia Frequency of urination Urinary pain Shortness of breath Hypoxia Chronic venous insufficiency Nocturia Chronic constipation Macular degeneration Photosensitivity (Acute) Seasonal allergies (Chronic) CAD (coronary artery disease) (Chronic) CAD c/b NSTEMI 03/2015 s/p 3v CABG ([facility]) Fatigue (Chronic) Hypercholesterolemia (Chronic) Hypertension (Chronic) Prostate cancer (Chronic) s/p prostatectomy 01/2016. Follows with urology [facility] Medical History History of non-ST elevation myocardial infarction (NSTEMI) (~2014) Trigeminal neuralgia of right side of face Rectal mucosa prolapse Hx of Lyme disease Surgical History S/P CABG x 3 H/O prostatectomy S/P repair of hydrocele S/P hemorrhoidectomy History of hernia surgery Family History Other Myocardial infarction Denies family history of Ovarian cancer Prostate cancer Breast cancer Colorectal cancer Social History Smoking Status: Never smoker Second Hand Exposure: No; Do You Dip or Chew Tobacco: No; Hx Alcohol Use: Yes Alcohol type: hard liquor Hx Substance Use: No Preferred Language: Greek Communication Ability: Effective Visual Impairment: No Limitations Hearing Ability: Normal Salesperson Pianos And Organs Required: No Beliefs That Will Affect Care: None marital status: / Current Living Situation: Alone current occupational status: retired Feels Safe at Home: Yes Childhood Exposure to Second-Hand Smoke: No caffeine: Yes Dental Care, Regularly: Yes Physical Activity Frequency: 5-6 Times per Week Seatbelt Use: always Sunscreen Use: No Assistive Devices: Glasses Review of Systems Review of Systems: see HPI Physical Exam Physical Exam: The patient is awake, alert and oriented 3, well developed and well nourished, normocephalic and atraumatic, in no acute distress. Non-toxic appearing. HEENT- EOMI, yellow discharge from b/l eyes. Erythematous conjunctiva. Heart-normal S1 and S2. No murmurs, rubs or gallops. Lungs-clear bilaterally, no respiratory distress, no accessory muscle use. Abdomen-normal bowel sounds and soft. No ascites noted. Non-tender. Extremities- no clubbing, cyanosis, or edema. Rheumatologic-normal range of motion. Psychiatric-normal affect. Results & Data Results & Data Vital Signs (Past 12 Hours) Vital Signs Temp Pulse Pulse Resp BP BP Pulse Ox 08/28/24 15:06 76 20 167/79 H 93 08/28/24 12:57 36.6 C 72 18 157/77 H 91 O2 Del Method 08/28/24 15:06 Room Air 08/28/24 12:57 Room Air Code Status & VTE Plan Code Status DNR/DNI VTE Prophylaxis Plan VTE Prophylaxis will be ordered: Yes Supervising Physician Co-Signing Physician Notes Patient seen and examined, chart reviewed, case discussed with Jess Sandy PA-C and I agree with the assessment and plan as above except as otherwise noted Labs and images reviewed Increased cough, sputum production, dyspnea, and yellow conjunctival discharge. +Rhinovirus on 08/25, was using warm compresses but having increasing cough now present nearly 3 weeks total and increased thick sputum from his eyes. Did feel a little better post prednisone. No wheezing on exam. Given that his cough and symptoms have been present for 3 weeks feel coverage of possible superimposed pneumonia is warranted. CT is pending, no evidence of lobar pneumonia on x-ray will cover with Augmentin on admission. Suspect his eye discharge is likely from his rhinovirus however this has a thick and yellow character to it. A sample has been sent for culture. In the meantime we will treat with erythromycin ribbon for possible bacterial conjunctivitis. MRSA nare remains pending He is not septic. White count is not increased. He is not toxic appearing on admission. Agree with above PG Care Time/CCT Total # of Minutes Spent Total Time Spent with Patient: Total time spent is greater than 50% in coordination of care (as documented) at patient's floor/unit and/or counseling patient: Coding Level of Care Code 51744 INT INP/OBS CARE MIN Diagnoses Acute bronchitis due to Rhinovirus J20.6 Acute conjunctivitis H10.30 Coronary artery disease involving zuni coronary artery of zuni heart without angina pectoris I25.10 Associated angina: without angina Coronary Disease-Associated Artery/Lesion type: zuni artery [place] vs. transplanted heart: zuni heart Primary hypertension I10 Hypertension type: primary hypertension (3) CAD (coronary artery disease) Associated angina: without angina Coronary Disease-Associated Artery/Lesion type: zuni artery [place] vs. transplanted heart: zuni heart Qualified Code(s): I25.10 - Atherosclerotic heart disease of zuni coronary artery without angina pectoris (4) Hypertension Hypertension type: primary hypertension Qualified Code(s): I10 - Essential (primary) hypertension
[2024-08-28] MEDS: BENZONATATE 100 MG CAPSULE PO ONE (15:49)
[2024-08-28] MEDS: SODIUM CHLORIDE 0.9% 1,000 ML IV SCH (15:52)
[2024-08-28] MEDS: ERYTHROMYCIN OP OINT 5 MG/GM 3.5 GM TUBE OP SCH (16:29)
--- NOTE | 2024-08-28 17:11 | Emergency Department Note ---
Impression & Plan Acute bronchitis due to Rhinovirus, RAD (reactive airway disease), Acute conjunctivitis, bilateral ED Provider Note CHIEF COMPLAINT: cough, conjunctivitis HISTORY OF PRESENT ILLNESS: This 83 yo male patient with PMH of recent dx rhinovirus, conjunctivitis as well as chronic h/o HTN, hyperlipidemia, CAD, macular degeneration, pulmonary nodules presents to the emergency department with c/o repetitive cough, SOB, R>L eye pain. His daughter is concerned that he may have shingles in the eye and referred him in to the ED. His cough is keeping him up at night. He denies fever, vomiting and diarrhea. REVIEW OF SYSTEMS: A review of systems was performed with positives and pertinent negatives listed in the history of present illness. 10 systems were reviewed and are otherwise negative. ALLERGIES: see below MEDICATIONS: see below PMH: see below SOCIAL HISTORY: see below DDx: Conjunctivitis, viral syndrome, cellulitis, shingles, trauma, pneumonia, reactive airway disease among others. PHYSICAL EXAM: Vital signs reviewed. General: Well-appearing 83-year-old male, in no significant distress. HEENT: No scleral icterus, PERRLA, neck supple. Erythema to the bilateral eyes with small amount of purulent drainage. Small amount of erythema and irritation to the lateral right canthus. Negative fluorescein uptake to the right eye. Cardiovascular: Regular rate and rhythm, no extra sounds. Pulmonary: Coarse breath sounds to auscultation bilaterally, normal work of breathing. Dry cough Abdomen: Soft, nontender, nondistended, positive bowel sounds. Musculoskeletal: Atraumatic, no peripheral edema. Neurologic: Patient awake alert and oriented x 3, speech is clear Skin: Warm, dry, no rash EMERGENCY DEPARTMENT COURSE/MDM: This patient was evaluated and appeared to be in no significant distress. IV access was obtained and laboratory work was drawn. The patient was placed on the monitor and storage bin tender noted to be in a sinus rhythm with a first-degree AV block. Chest x-ray was performed and reveals no evidence of focal lung consolidation or failure. A culture was taken of the drainage of the right eye. Patient was given Cipro ophthalmic drops and a DuoNeb treatment. Patient was medicated with 60 mg of IV Solu-Medrol and given Tessalon Perles. IV hydration was initiated. After discussion with the patient's friend at the bedside and family member over the phone, daughter in [place], it seems the patient's would best be served in the hospital at least overnight for further management. He does live at home by himself but his friend lives an hour and a half away. Much of his support is remote. The patient was comfortable with this plan and agreed. Hospitalist service was contacted for admission and further management. MONITORING: An order for cardiac monitoring was placed and the patient is noted to be in a normal sinus rhythm beats per minute. RADIOLOGY: Chest x-ray to my interpretation reveals no evidence of focal lung consolidation or failure EKG: To my interpretation reveals a sinus rhythm with a first-degree AV block at 61 bpm, left anterior fascicular block, right bundle branch block. Minimal voltage criteria for LVH. DISPOSITION: Admission Past Med/Surg History Problem List (Updated 08/31/24 @ 08:16 by Corina Edwards MD) Acute conjunctivitis, bilateral (Acute) RAD (reactive airway disease) (Acute) Acute bronchitis due to Rhinovirus (Acute) Acute conjunctivitis Acute right eye pain Acute viral conjunctivitis of both eyes (Acute) Acute bronchitis due to Rhinovirus (Acute) GISELLE (obstructive sleep apnea) Urinary urgency Hypersomnia Multiple pulmonary nodules Anemia Frequency of urination Urinary pain Shortness of breath Hypoxia Chronic venous insufficiency Nocturia Chronic constipation Macular degeneration Photosensitivity (Acute) Seasonal allergies (Chronic) CAD (coronary artery disease) (Chronic) CAD c/b NSTEMI 03/2015 s/p 3v CABG ([facility]) Fatigue (Chronic) Hypercholesterolemia (Chronic) Hypertension (Chronic) Prostate cancer (Chronic) s/p prostatectomy 01/2016. Follows with urology [facility] Medical History History of non-ST elevation myocardial infarction (NSTEMI) (~2014) Trigeminal neuralgia of right side of face Rectal mucosa prolapse Hx of Lyme disease Surgical History S/P CABG x 3 H/O prostatectomy S/P repair of hydrocele S/P hemorrhoidectomy History of hernia surgery Family History Other Myocardial infarction Denies family history of Ovarian cancer Prostate cancer Breast cancer Colorectal cancer Social History Smoking Status: Never smoker Second Hand Exposure: No; Do You Dip or Chew Tobacco: No; Hx Alcohol Use: Yes Alcohol type: hard liquor Hx Substance Use: No Preferred Language: Georgian Communication Ability: Effective Visual Impairment: No Limitations Hearing Ability: Normal Pipe Or Steam Fitter Furnace Installer Required: No Beliefs That Will Affect Care: None marital status: / Current Living Situation: Alone current occupational status: retired Feels Safe at Home: Yes Childhood Exposure to Second-Hand Smoke: No caffeine: Yes Dental Care, Regularly: Yes Physical Activity Frequency: 5-6 Times per Week Seatbelt Use: always Sunscreen Use: No Assistive Devices: None Allergies Allergies Allergy/AdvReac Type Severity Reaction Status Date / Time metoprolol AdvReac Bradycardia Verified 07/12/24 14:02 Home Meds Home Medications Medication Instructions Recorded Confirmed aspirin 81 mg tablet 81 mg PO DAILY 04/22/19 08/28/24 lutein 20 mg capsule 20 mg PO BID 04/22/19 08/28/24 omega-3 acid ethyl esters 1 gram 1 cap PO DAILY 04/22/19 08/28/24 capsule cholecalciferol (vitamin D3) 125 125 mcg PO DAILY 03/09/23 08/28/24 mcg (5,000 unit) capsule bimatoprost 0.01 % eye drops 1 drp ophthalmic (eye) DAILY 12/15/23 08/28/24 ([place]igan) calcium carbonate 1 tab PO DAILY 08/28/24 08/28/24 leuprolide (3 month) 11.25 mg (3 0 unit IM DIRECTED 08/28/24 08/28/24 month) intramuscular syringe kit (Lupron Depot) Previous Rx's Medication Instructions Recorded triamcinolone acetonide 0.1 % 1 applic topical BID 2 weeks #80 02/04/24 topical ointment grams atorvastatin 20 mg tablet 20 mg PO DAILY #90 tabs 06/23/24 olmesartan 20 mg tablet 20 mg PO DAILY #90 tabs 06/23/24 amoxicillin 875 mg-potassium 1 tab PO BID #10 tabs 08/30/24 clavulanate 125 mg tablet Results & Data (ED) Vital Signs Vital Signs - 24 hr 08/28/24 12:57 08/28/24 15:06 08/28/24 15:57 Temperature 36.6 C Temperature Source Temporal Artery Scan Pulse Rate 72 69 Pulse Rate [Apical] 76 Respiratory Rate 18 20 Respiratory Effort / Characteristics Non-Labored Spontaneous Respiratory Depth Normal Blood Pressure 157/77 H Blood Pressure [Right Arm] 167/79 H Blood Pressure Mean 103 Blood Pressure Mean [Right Arm] 108 Blood Pressure Position [Right Arm] Sitting Pulse Oximetry 91 93 Oxygen Delivery Method Room Air Room Air Sepsis Recent Fever Within 48 Hours Yes Sepsis New/Unexplained Change in Mental Status N/A Sepsis Action Taken by Nursing No Action Required Home Medications Current Medication List: was personally reviewed by me Laboratory Data Attestation: I reviewed the patient's lab results. 08/29/24 07:08 08/29/24 07:08 Lab Results 08/28/24 Range/Units 14:15 WBC 8.11 (4.8-10.8) K/ul RBC 4.04 L (4.70-6.10) M/uL Hgb 12.6 L (14.0-18.0) g/dl Hct 38.3 L (42.0-52.0) % MCV 94.8 (80.0-100.0) fL MCH 31.2 (25.0-34.0) pg MCHC 32.9 (32.0-36.0) g/dL RDW Std Deviation 45.6 (36.4-46.3) fL RDW Coeff of Ada 13.0 (11.5-14.5) % Plt Count 282 (130-400) K/uL MPV 9.4 (9.4-12.4) fL Immature Gran % (Auto) 0.4 % Neut % (Auto) 77.6 % Lymph % (Auto) 11.3 % [place] % (Auto) 10.5 % Eos % (Auto) 0.0 % Baso % (Auto) 0.2 % Neut # (Auto) 6.29 (1.40-6.50) K/uL Lymph # (Auto) 0.92 L (1.20-3.40) K/uL [place] # (Auto) 0.85 H (0.11-0.59) K/uL Eos # (Auto) 0.00 (0.00-0.50) K/uL Baso # (Auto) 0.02 (0.00-0.20) K/uL Immature Gran # (Auto) 0.03 (0.01-0.20) K/uL Sodium 134 L (136-145) mmol/L Potassium 4.4 (3.5-5.1) mmol/L Chloride 101 (98-107) mmol/L Carbon Dioxide 26 (21-32) mmol/L Anion Gap 7 (3-11) BUN 20 (6-23) mg/dl Creatinine 0.99 (0.6-1.4) mg/dl Est Cr Clr Drug Dosing 60.2 ml/min eGFR 75.58 BUN/Creatinine Ratio 20.2 H (10-20) Glucose 103 H (70-99(Fasting)) mg/dl Calcium 9.4 (8.6-10.3) mg/dl Magnesium 2.3 (1.7-2.4) mg/dl Total Bilirubin 0.7 (0.2-1.0) mg/dl AST 15 (13-39) U/L ALT 11 (7-52) U/L Alkaline Phosphatase 70 (34-104) U/L Troponin I High Sens 13.9 (0-20) pg/ml Total Protein 7.4 (6.0-8.3) gm/dl Albumin 4.2 (3.4-5.0) gm/dl Globulin 3.2 (2.5-4.0) gm/dl Albumin/Globulin Ratio 1.3 (0.9-2) Administered Medications Discontinued Medications Acetaminophen (Acetaminophen 325 Mg Tab) 650 mg PO Q4H PRN PRN Reason: Pain or Fever Stop: 09/27/24 18:03 Last Admin: 08/28/24 21:56 Dose: 650 mg Documented By: MARIVEL Albuterol (Albut/Ipratrop 3mg/0.5mg Neb 3 Ml Vial) 3 ml NEB NOW STA; Protocol Stop: 08/28/24 13:47 Last Admin: 08/28/24 14:28 Dose: 3 ml Documented By: ROGERIO Amoxicillin/Clavulanate Potassium (Amoxicillin/Clavulanate 875 Mg Tab) 1 tab PO BIDM [facility]; Protocol Stop: 09/02/24 16:59 Last Admin: 08/29/24 08:22 Dose: 1 tab Documented By: Admin: 08/28/24 19:46 Dose: 1 tab Documented By: MARIVEL Aspirin (Aspirin 81 Mg Ectab) 81 mg PO DAILY [facility] Stop: 09/27/24 18:29 Last Admin: 08/30/24 09:01 Dose: 81 mg Documented By: Admin: 08/29/24 08:24 Dose: 81 mg Documented By: Admin: 08/28/24 19:47 Dose: 81 mg Documented By: MARIVEL Atorvastatin Calcium (Atorvastatin 20 Mg Tab) 20 mg PO DAILY [facility] Stop: 09/27/24 18:29 Last Admin: 08/30/24 09:02 Dose: 20 mg Documented By: Admin: 08/29/24 08:23 Dose: 20 mg Documented By: Admin: 08/28/24 19:47 Dose: 20 mg Documented By: MARIVEL Benzonatate (Benzonatate 100 Mg Capsule) 200 mg PO NOW ONE Stop: 08/28/24 14:36 Last Admin: 08/28/24 15:49 Dose: 200 mg Documented By: LEONID Benzonatate (Benzonatate 100 Mg Capsule) 100 mg PO TID PATEL Stop: 09/27/24 20:59 Last Admin: 08/30/24 13:11 Dose: 100 mg Documented By: Admin: 08/30/24 09:01 Dose: 100 mg Documented By: Admin: 08/29/24 21:44 Dose: 100 mg Documented By: Admin: 08/29/24 14:52 Dose: 100 mg Documented By: Admin: 08/29/24 08:23 Dose: 100 mg Documented By: Admin: 08/28/24 21:56 Dose: 100 mg Documented By: MARIVEL Bimatoprost (Bimatoprost 0.01% Op Soln 2.5 Ml Btl) 1 drops OP DAILY PATEL Stop: 09/28/24 08:59 Last Admin: 08/30/24 09:03 Dose: 1 drops Documented By: Admin: 08/29/24 08:25 Dose: 1 drops Documented By: JONAH Calcium Carbonate (Calcium Carbonate 1250mg Tab) 1 tab PO DAILY PATEL Stop: 09/28/24 08:59 Last Admin: 08/30/24 09:02 Dose: 1 tab Documented By: Admin: 08/29/24 08:24 Dose: 1 tab Documented By: JONAH Ciprofloxacin (Ciprofloxacin Hcl 0.3% Op Soln 2.5 Ml Btl) 2 drops OTB NOW ONE Stop: 08/28/24 13:36 Last Admin: 08/28/24 14:28 Dose: 2 drops Documented By: ROGERIO Docusate Sodium (Docusate Sodium 100 Mg Cap) 100 mg PO BID PRN PRN Reason: Constipation Stop: 09/27/24 18:03 Last Admin: 08/30/24 09:47 Dose: 100 mg Documented By: JONAH Erythromycin (Erythromycin Op Oint 5 Mg/Gm 3.5 Gm Tube) 1 appln OP Q6H [facility] Stop: 09/07/24 16:14 Last Admin: 08/29/24 04:12 Dose: 1 appln Documented By: Admin: 08/28/24 21:56 Dose: 1 appln Documented By: Admin: 08/28/24 16:29 Dose: 1 appln Documented By: LEONID Gentamicin Sulfate (Gentamicin Sulfate 0.3% Op Soln 5 Ml Btl) 1 drops OPB QID [facility] Stop: 09/08/24 08:59 Last Admin: 08/30/24 13:11 Dose: 1 drops Documented By: Admin: 08/30/24 09:00 Dose: 1 drops Documented By: Admin: 08/29/24 21:44 Dose: 1 drops Documented By: Admin: 08/29/24 17:43 Dose: 1 drops Documented By: Admin: 08/29/24 14:53 Dose: 1 drops Documented By: Admin: 08/29/24 10:44 Dose: 1 drops Documented By: JONAH Guaifenesin/Codeine Phosphate (Guaifenesin/Codeine 100mg/10mg 5ml Udc) 5 ml PO Q6H PRN PRN Reason: Cough Stop: 09/28/24 01:09 Last Admin: 08/30/24 06:16 Dose: 5 ml Documented By: Admin: 08/29/24 21:44 Dose: 5 ml Documented By: Admin: 08/29/24 01:25 Dose: 5 ml Documented By: MARIVEL Sodium Chloride (Nss) 1,000 mls @ 125 mls/hr IV .Q8H PATEL Stop: 08/28/24 23:29 Last Infusion: 08/29/24 00:52 Dose: Infused Documented By: Admin: 08/28/24 15:52 Dose: 125 mls/hr Documented By: LEONID Piperacillin Sod/Tazobactam Sod (Zosyn) 4.5 gm in 100 mls @ 25 mls/hr IV Q8H PATEL; Protocol Stop: 09/03/24 08:59 Last Infusion: 08/30/24 13:02 Dose: Infused Documented By: Admin: 08/30/24 09:00 Dose: 25 mls/hr Documented By: Infusion: 08/30/24 05:06 Dose: Infused Documented By: Admin: 08/30/24 00:57 Dose: 25 mls/hr Documented By: Infusion: 08/29/24 21:46 Dose: Infused Documented By: Admin: 08/29/24 17:43 Dose: 25 mls/hr Documented By: Infusion: 08/29/24 14:48 Dose: Infused Documented By: Admin: 08/29/24 10:43 Dose: 25 mls/hr Documented By: JONAH Losartan Potassium (Losartan Potassium 50 Mg Tab) 50 mg PO DAILY PATEL Stop: 09/27/24 18:29 Last Admin: 08/30/24 09:03 Dose: 50 mg Documented By: Admin: 08/29/24 08:24 Dose: 50 mg Documented By: Admin: 08/28/24 19:46 Dose: 50 mg Documented By: MARIVEL Menthol (Cough Drop (Sugar Free) Lili 24 Lili/1 Box) Confirm Administered Dose 24 lili BUCCAL .STK-MED ONE Stop: 08/29/24 01:23 Last Admin: 08/29/24 01:25 Dose: 24 lili Documented By: MARIVEL Methylprednisolone (Methylprednisolone 125 Mg/2 Ml Vial) 60 mg IV NOW STA Stop: 08/28/24 13:47 Last Admin: 08/28/24 14:28 Dose: 60 mg Documented By: ROGERIO Vitamin D (Cholecalciferol 125 Mcg (5,000 Units) Tab) 125 mcg PO DAILY PATEL Stop: 09/28/24 08:59 Last Admin: 08/30/24 09:02 Dose: 125 mcg Documented By: Admin: 08/29/24 08:23 Dose: 125 mcg Documented By: JONAH Imaging Data Radiologist's Impression: Chest X-Ray 08/28/24 13:25 XR chest 1V portable HISTORY: 83 years-old Male weakness acute weakness COMPARISON: 08/25/2024 TECHNIQUE: AP view of the chest FINDINGS: Cardiac silhouette is enlarged. Median sternotomy. Mild chronic interstitial coarsening with bibasilar atelectasis versus scarring. Mild right hemidiaphragmatic elevation. No pneumothorax or large pleural effusion. Bones appear grossly intact. IMPRESSION: No acute process. ACT 112: Negative or not required by law. The above report was generated using voice recognition software. It may contain grammatical, syntax or spelling errors. Electronically signed by: Jaylen Martin M.D. 08/28/2024 1:56 PM Discharge Plan Visit Data Chief Complaint: Eye Pain Stated Complaint: BRONCHITIS, EYE PAIN RT, COUGH, FEVER, ED Provider: Corina Edwards Discharge Problem: Acute bronchitis due to Rhinovirus, RAD (reactive airway disease), Acute conjunctivitis, bilateral Patient Disposition: Admitted As Inpatient Discharge Instructions Interventions: ED Discharge Assessment Last Done: 08/28/24 17:38 Discharge Problem: RAD (reactive airway disease) Qualifiers: Asthma severity: moderate Asthma persistence: persistent Asthma complication type: with acute exacerbation Qualified Code(s): J45.41 - Moderate persistent asthma with (acute) exacerbation Acute conjunctivitis, bilateral Qualifiers: Acute conjunctivitis type: bacterial Qualified Code(s): H10.33 - Unspecified acute conjunctivitis, bilateral
[2024-08-28] MEDS ORDERED: ONDANSETRON INJ 2 MG/ML 2 ML VIAL IV PRN (18:04)
--- NOTE | 2024-08-28 18:24 | CT Scan Report ---
EXAM: CT Chest Without Intravenous Contrast INDICATION: Cough and dyspnea. TECHNIQUE: Axial computed tomography images of the chest without intravenous contrast. Sagittal and coronal reformatted images were created and reviewed. This CT exam was performed using one or more of the following dose reduction techniques: automated exposure control, adjustment of the mA and/or kV according to patient size, and/or use of iterative reconstruction technique. COMPARISON: Chest x-ray 08/25/[address] chest 02/03/2023 FINDINGS: Limitations: None. Lungs and pleural spaces: There is acute mild airway thickening. Coarse atelectasis present in the lung bases. Small approximate 1.1 cm diameter groundglass opacity in the posterior left upper lobe abutting the major fissure. There is persistent but decreased size of noncalcified pleural-based nodules in the left lower lobe and a stable pleural-based 4 mm right lower lobe nodule. No further assessment of these nodules required. No significant effusion. Heart: Mild cardiomegaly. Coronary bypass change noted. No pericardial effusion. In the posterior left upper lobe abutting the major fissure is a approximate 1.1 cm diameter focus of scar or pneumonitis series 3 image 16. Thyroid: No abnormality noted. Bones/joints: Degenerative changes noted throughout the spine. No acute osseous abnormality seen. Soft tissues: Bilateral gynecomastia stable. Vasculature: No abnormality noted. No thoracic aortic aneurysm. Lymph nodes: No enlarged lymph nodes. Gallbladder and bile ducts: Small gallstones present. Kidneys and ureters: Perinephric stranding of the visualized portion of each kidney is unchanged likely reflecting scarring. There is a simple cyst in the left kidney. IMPRESSION: 1. Bronchitis with small focus of left upper lobe pneumonitis. 2. Cholelithiasis. ACT 112: Negative or not required by law. Electronically signed by Shelli Mata 08-28-2024 6:24 PM
[2024-08-28] MEDS: LOSARTAN POTASSIUM 50 MG TAB PO SCH (19:46)
[2024-08-28] MEDS: AMOXICILLIN/CLAVULANATE 875 MG TAB PO SCH (19:46)
[2024-08-28] MEDS: ASPIRIN 81 MG ECTAB PO SCH (19:47)
[2024-08-28] MEDS: ATORVASTATIN 20 MG TAB PO SCH (19:47)
[2024-08-28] MEDS: ACETAMINOPHEN 325 MG TAB PO PRN (21:56)
[2024-08-28] MEDS: BENZONATATE 100 MG CAPSULE PO SCH (21:56)
[2024-08-29] MEDS: guaiFENesin/CODEINE 100MG/10MG 5ML UDC PO PRN (01:25)
[2024-08-29] MEDS: COUGH DROP (SUGAR FREE) LOZ 24 LOZ/1 BOX BUCCAL ONE (01:25)
[2024-08-29 04:31] LABS: Appearance Urine Clear (Clear); Bacteria Urine Automated None Seen (None Seen); Bilirubin Urine Negative (Negative); Blood Urine Negative (Negative); Cast Urine Automated 0-2 /lpf (0-2); Color Urine Yellow; Epithelial Cell Urine Auto 0-2 /hpf (0-2); Glucose Urine UA Negative (Negative); Ketones Urine Trace (Negative); Leukocyte Esterase Urine Negative (Negative); Nitrite Urine Negative (Negative); Protein Urine Trace (Negative); RBC Urine Automated 0-2 /hpf (0-2); Specific Gravity Urine 1.029 (1.000-1.030); Urobilinogen Urine Negative (Negative); WBC Urine Automated 0-5 /hpf (0-5)
[2024-08-29 08:04] LABS: Basophils # (auto) 0.01 K/uL (0.00-0.20); Basophils % (auto) 0.1 %; Hemoglobin 11.5 g/dl (14.0-18.0); Immature Granulocytes # (auto) 0.03 K/uL (0.01-0.20); Immature Granulocytes % (auto) 0.4 %; Lymphocytes # (auto) 1.26 K/uL (1.20-3.40); Lymphocytes % (auto) 17.5 %; Mean Corpuscular Hemoglobin 31.2 pg (25.0-34.0); Mean Corpuscular Hgb Conc 32.9 g/dL (32.0-36.0); Mean Corpuscular Volume 94.9 fL (80.0-100.0); Mean Platelet Volume 9.9 fL (9.4-12.4); Monocytes # (auto) 0.67 K/uL (0.11-0.59); Monocytes % (auto) 9.3 %; Neutrophils # (auto) 5.23 K/uL (1.40-6.50); Neutrophils % (auto) 72.7 %; Platelet Count 265 K/uL (130-400); RDW Standard Deviation 45.1 fL (36.4-46.3); Red Blood Count 3.69 M/uL (4.70-6.10)
[2024-08-29 08:07] LABS: BUN Creatinine Ratio 21.9 (10-20); Calcium 8.6 mg/dl (8.6-10.3); Creatinine Clr Calc Pharmacy 62.1 ml/min; Potassium 4.7 mmol/L (3.5-5.1)
[2024-08-29] MEDS: CHOLECALCIFEROL 125 MCG (5,000 UNITS) TAB PO SCH (08:23)
[2024-08-29] MEDS: CALCIUM CARBONATE 1250MG TAB PO SCH (08:24)
[2024-08-29] MEDS: BIMATOPROST 0.01% OP SOLN 2.5 ML BTL OP SCH (08:25)
--- NOTE | 2024-08-29 10:26 | Electrocardiogram Report ---
Test Reason : Blood Pressure : */* mmHG Vent. Rate : 61 BPM Atrial Rate : 61 BPM P-R Int : 250 ms QRS Dur : 154 ms QT Int : 442 ms P-R-T Axes : 53 -40 18 degrees QTcB Int : 444 ms Sinus rhythm with 1st degree A-V block Left anterior fascicular block Right bundle branch block Minimal voltage criteria for LVH, may be normal variant ( R in aVL ) Abnormal ECG When compared with ECG of 25-Aug-2024 01:02, Premature atrial complexes are no longer Present Confirmed by French Lewis ([id number]) on 08/29/2024 10:26:48 AM Referred By: REFERRED SELF Confirmed By: French Lewis
[2024-08-29] MEDS: PIPERACILLIN/TAZOBACTAM 4.5 GM/100 ML BAG IV SCH (10:43)
[2024-08-29] MEDS: GENTAMICIN SULFATE 0.3% OP SOLN 5 ML BTL OPB SCH (10:44)
--- NOTE | 2024-08-29 13:01 | Hospitalist Progress Note ---
Date of Service August 29, 2024 Assessment & Plan (1) Acute bronchitis due to Rhinovirus: Plan: He appears to have a bacterial bronchitis. Rhinovirus was positive on admission but he does not appear to have an acute viral illness at this time. He is now on intravenous Zosyn therapy, day 1. Sputum culture is ordered. (2) Acute conjunctivitis: Plan: Bilateral. Erythromycin ointment switched to gentamicin drops. Eventual discharge to home on an oral antibiotic (3) CAD (coronary artery disease): Plan: History of CAD s/p three-vessel CABG in 2015. Stable. Continue current medical management (4) Hypertension: Plan: Stable. Continue current medical management Plan Hopeful discharge to home tomorrowAugust 30 Admission and Anticipated Discharge Date Admission Date: August 28, 2024 Subjective Alert and oriented. Afebrile. He is ambulating in the room. He is now on intravenous Zosyn for suspected acute bronchitis, day 1. Rhinovirus positive on admission but he does not appear to have an acute viral illness. Bilateral conjunctivitis treated with erythromycin ointment which has been switched to gentamicin ophthalmic drops. Sputum cultures ordered and pending. He is in observation status. Hopefully he can go home tomorrow, August 30 on an oral antibiotic Review of Systems 2 Review of Systems: Constitutionalno fever or chills ENTno blurred vision, no double vision, no epistaxis, no sore throat. Bilateral scleral injection with exudate Respiratoryproductive cough with discolored phlegm. Denies wheezing. No hemoptysis. No shortness of breath Cardiacno palpitations, no chest pain, no syncope Katheryn nausea, vomiting, diarrhea, melena, hematochezia GUno urinary retention, no urinary incontinence, no dysuria, no hematuria Musculoskeletalno joint pain, no muscle tenderness Skinno bruising, no rashes, no pruritus Neurono isolated weakness, no paresthesia, no weakness Psychno depression, no anxiety Physical Exam 2 Physical Exam: General-alert and oriented x3, no fever, no chills HEENT-head atraumatic and normocephalic, pupils equal and reactive to light, extraocular muscles intact. Bilateral scleral injection noted Neck-no lymphadenopathy or thyromegaly, trachea midline Chest-few midline rhonchi. No dullness to percussion. No wheezing. No inspiratory rales Cardiacnormal rate and rhythm, normal S1 and S2 Abdomen-normal bowel sounds, no hepatosplenomegaly Extremities-no cyanosis, clubbing, or edema Neuro-cranial nerves II through XII intact, motor and sensory function within normal limits, strength symmetrical, no focal deficits Psych-normal affect, normal mood Results & Data Results & Data Vital Signs (Past 12 Hours) Vital Signs Temp Pulse Resp BP Pulse Ox O2 Del Method 08/29/24 07:35 36.7 C 59 L 18 152/76 H 93 Room Air 08/29/24 04:11 36.5 C Laboratory Results 08/29/24 07:08 08/29/24 07:08 PG Care Time/CCT Total # of Minutes Spent Total Time Spent with Patient: Total time spent is greater than 50% in coordination of care (as documented) at patient's floor/unit and/or counseling patient: Coding Level of Care Code 85110 SUB INP/OBS CARE 235MIN Diagnoses Acute bronchitis due to Rhinovirus J20.6 Acute conjunctivitis H10.30 Coronary artery disease involving [place] coronary artery of [place] heart without angina pectoris I25.10 Coronary Disease-Associated Artery/Lesion type: [place] artery [place] vs. transplanted heart: [place] heart Associated angina: without angina Primary hypertension I10 Hypertension type: primary hypertension (3) CAD (coronary artery disease) Coronary Disease-Associated Artery/Lesion type: [place] artery [place] vs. transplanted heart: [place] heart Associated angina: without angina Qualified Code(s): I25.10 - Atherosclerotic heart disease of [place] coronary artery without angina pectoris (4) Hypertension Hypertension type: primary hypertension Qualified Code(s): I10 - Essential (primary) hypertension
[2024-08-30 07:12] VITALS: BP 155/79; RESP 18; TEMP 97.9; O2SAT 96
--- NOTE | 2024-08-30 08:37 | XRay Report ---
EXAM: XR chest 1V portable CLINICAL HISTORY: WORSENING SOB WTW TECHNIQUE: X-ray image of the chest is obtained in AP projection. COMPARISON: 08/28/2024. FINDINGS: Pulmonary Parenchyma: Bilateral prominent bronchovascular markings with mild peribronchial thickening. Few small atelectatic bands traversing in the right lower zone. No evidence of consolidation or pulmonary nodule seen No evidence of pleural effusion or pleural thickening. Heart and Mediastinum: Cardiac shadow is enlarged in size. No mediastinal masses seen. No hilar or mediastinal lymphadenopathy seen. Bony Thorax: [Post CABG] sternotomy sutures seen in situ. Bony thorax appears intact without fractures or deformities. Soft Tissues: Soft tissues overlying the chest wall are unremarkable. IMPRESSION: 1. Mild cardiomegaly with prominent bronchovascular markings. [Nearly stable] 2. Few linear atelectatic band right lower zone [nearly stable]. 3. Comparing the previous x-ray, there is interval stable mild cardiomegaly with bronchovascular marking and few atelectatic bands right lower zone. Electronically signed by Cierra Painter 08-30-2024 08:05 AM
[2024-08-30] MEDS: DOCUSATE SODIUM 100 MG CAP PO PRN (09:47)
--- NOTE | 2024-08-30 11:48 | Discharge Summary ---
Discharge Summary Date of Service August 30, 2024 Principal Dx & Hospital Course #1 = Principal Diagnosis (1) Acute bronchitis due to Rhinovirus: Actually, sputum cultures are positive for haemophilus. He appears to have haemophilus bronchitis. This was treated with intravenous Zosyn while hospitalized. He will take oral Augmentin for 5 more days at discharge. Incidental finding of rhinovirus positivity but no acute viral illness evident. (2) Acute conjunctivitis: Bilateral. Erythromycin ointment switched to gentamicin drops. Much improved. He will continue Augmentin orally at discharge. (3) CAD (coronary artery disease): History of CAD s/p three-vessel CABG in 2014. Stable. Continue current medical management (4) Hypertension: Stable. Continue current medical management Plan Home today, August 30 Admission HPI Per Admitting Provider Patient is an 83-year-old male who was recently seen in the ER for bronchitis and conjunctivitis, tested positive for rhinovirus/enterovirus. He has a past medical history of CAD s/p three-vessel CABG 2014, hypertension, history of prostate cancer, GISELLE, pulmonary nodules, and macular degeneration (cipro drops daily x2 years) . He presents today due to worsening cough, hot flashes, sputum production, eye drainage, burning of eyes, sore throat, dyspnea. he stated that for the past 17 days he has had the symptoms, it got worse this morning. When he was discharged from the ER on 08/25, he was not sent on any medications, only told to do warm compress for both eyes. He has had yellow/green sputum production along with yellow/white discharge from his eyes. He has no rashes, had Shingrix vaccine. He also stated that he has had tingling of his arms with severe coughing episodes. He has also had dizziness today with coughing episodes. He stated last night he had an episode of heavy chest pain that lasted 3 to 4 minutes with a coughing fit. He endorses dizziness, headaches, sore throat, rhinorrhea. Patient denies abdominal pain, nausea, vomiting, diarrhea, constipation. He is a and lives at home alone. He does not use a CPAP for his sleep apnea, he just sleeps on his side and stomach. He did not take his home medications this morning. He wishes to be DNR/DNI. Discharge Exam General-alert and oriented x3, no fever, no chills HEENT-head atraumatic and normocephalic, pupils equal and reactive to light, extraocular muscles intact. Bilateral scleral injection has markedly improved Neck-no lymphadenopathy or thyromegaly, trachea midline Chest-few midline rhonchi. No dullness to percussion. No wheezing. No inspiratory rales Cardiacnormal rate and rhythm, normal S1 and S2 Abdomen-normal bowel sounds, no hepatosplenomegaly Extremities-no cyanosis, clubbing, or edema Neuro-cranial nerves II through XII intact, motor and sensory function within normal limits, strength symmetrical, no focal deficits Psych-normal affect, normal mood Discharge Plan Discharge Items Patient Disposition: Home - Self-Care Reason For Visit: DYSPNEA, BRONCHITIS, CONJUNCTIVITIS, RHINOVIRUS Discharge Diagnosis: Acute haemophilus bronchitis, bilateral conjunctivitis Activity: Resume your previous activity Non-emergency contact: Primary Care Provider Call non-emergency contact if: your symptoms worsen Follow-up/Referrals: Sharee Mario MD [Primary Care Provider] - Diet: Regular and Heart Healthy Addtl Attending Provider Instructions: Take Augmentin (amoxicillin/clavulanate) twice a day for 5 more days Pending Studies at Discharge: No Stand-Alone Forms: My [facility] SocialRep, Smoking Cessation Medications and DC Order Prescriptions: New amoxicillin-pot clavulanate 875-125 mg tablet 1 tab PO BID Qty: 10 0RF Continued aspirin 81 mg tablet 81 mg PO DAILY omega-3 acid ethyl esters 1 gram capsule 1 cap PO DAILY lutein 20 mg capsule 20 mg PO BID cholecalciferol (vitamin D3) 125 mcg (5,000 unit) capsule 125 mcg PO DAILY triamcinolone acetonide 0.1 % ointment 1 applic topical BID 14 Days Qty: 80 0RF Rx Instructions: To rash on leg Lumigan 0.01 % drops 1 drp ophthalmic (eye) DAILY atorvastatin 20 mg tablet 20 mg PO DAILY Qty: 90 3RF olmesartan 20 mg tablet 20 mg PO DAILY Qty: 90 3RF Lupron Depot (3 month) 11.25 mg Syringe Kit 0 unit IM DIRECTED Rx Instructions: LUPRON INJ EVERY 3 MONTHS UNSURE OF DOSE calcium carbonate 600 mg calcium (1,500 mg) Tablet 1 tab PO DAILY Discharge Orders: Discharge Order (Routine); Ordered 08/30/24 Ordered By: Amado Joyce Admission Data Admit Date/Time: 08/28/24 16:35 Attending Provider: Amado Joyce Admit Provider: Jose A Arguelles Primary Care Provider: Sharee Mario Other Providers: Jose A Arguelles Hospital Stay Data Consultations 08/28/24 15:13 ED Decision to Admit Stat Diagnostic Imagining Performed 08/28/24 16:10 CT chest without contrast [CT chest diagnostic wo con] Urgent Pending Results Patient Have Any Pending Studies at Discharge: No Discharge Instructions Given to Patient (Per Discharging Provider) Take Augmentin (amoxicillin/clavulanate) twice a day for 5 more days Total Time Total Time Spent Total Time Spent (In Minutes): 45 minutes Coding Level of Care Code 32112 INP/OBS DISCH >30 MIN Diagnoses Acute bronchitis due to Rhinovirus J20.6 Acute conjunctivitis H10.30 Coronary artery disease involving [place] coronary artery of [place] heart without angina pectoris I25.10 Coronary Disease-Associated Artery/Lesion type: [place] artery [place] vs. transplanted heart: [place] heart Associated angina: without angina Primary hypertension I10 Hypertension type: primary hypertension
[2024-08-30 13:32] VITALS: PULSE 69
== END 2024-08-30 15:05 | disposition home or self-care (01) ==
LOC: ED 12:52 → 3E 12:52 → SUATTDRO 16:35 → 3E 17:38